=== PATIENT | female | born 1940 | race Caucasian/White ===

== ENCOUNTER 2023-09-11 00:56 | Inpatient (IN) | payer MEDICARE, OTHER, SELFPAY ==
[2023-09-10] VITALS (14 sets, daily range): BP systolic 113–157; BP diastolic 54–117; BMI 24.3
[2023-09-10] MEDS: NSS 1000 IV (17:04)
[2023-09-10 17:11] LABS: % Basophils 0.3 % (0-2); % Eosinophils 0.1 % (0-6); % Immature Granulocytes 0.1 % (0-0.5); % Lymphocytes 21.1 % (20.5-51.1); % Neutrophils 69.4 % (42.2-75.2); Absolute Lymphocytes 1.4 10^3/uL (1.2-3.4); Absolute Monocytes 0.6 10^3/uL (0.1-0.6); Absolute Neutrophils 4.7 10^3/uL (1.4-6.5); Hematocrit 49.3 % (37.0-47.0); Hemoglobin 16.7 g/dL (12.0-16.0); Mean Corp Hgb Conc. 33.9 g/dL (33.0-37.0); Mean Corpuscular Hgb 32.1 pg (27.0-31.0); Mean Corpuscular Volume 94.6 fL (81.0-99.0); Mean Platelet Volume 10.5 fL (7.4-10.4); Nucleated Red Blood Cells % 0 %; Platelet Count 223 10^3/uL (130-400); Red Blood Cell Count 5.21 10^6/uL (4.20-5.40); Red Cell Dist. Width 13.2 % (11.5-14.5); White Blood Cell Count 6.8 10^3/uL (4.8-10.8)
[2023-09-10 17:24] LABS: ALT (SGPT) 20 U/L (0-35); AST (SGOT) 32 U/L (14-36); Albumin 4.7 g/dl (3.5-5.0); Alkaline Phosphatase 118 U/L (38-126); Blood Urea Nitrogen 20 mg/dl (7-17); Calcium 9.8 mg/dl (8.4-10.2); Carbon Dioxide 18 mmol/L (22-30); Chloride 106 mmol/L (98-107); Estimated Creatinine Clearance 30 ml/min; Glucose 126 mg/dl (70-99); Potassium 4.1 mmol/L (3.5-5.1); Sodium 139 mmol/L (135-145); Total Bilirubin 0.9 mg/dl (0.2-1.3); Total Protein 7.6 g/dl (6.3-8.2); eGFR 49.55
[2023-09-10] MEDS: CARDIZEM 15 MG IV (17:34)
[2023-09-10 17:35] LABS: Troponin I 0.071 ng/ml
[2023-09-10] MEDS: TOPROL XL 12.5 MG PO (19:30)
[2023-09-10] MEDS: ELIQUIS 5 MG PO (19:31)
--- NOTE | 2023-09-10 19:47 | ED.GENMED ---
History of Present Illness
General
Chief Complaint: Heart Rate Problem
Source: patient and family
Exam Limitations: none
Time Seen by Provider: 09/10/23 17:08
Nursing documentation reviewed up to this point in time: agreed with
History of Present Illness
History of Present Illness:
82-year-old female with a past medical history of hypertension, history of Crohn's disease status post distant bowel resection who presents to the emergency room for evaluation of tachycardia. Patient reports that on Thursday and Thursday
this week she was having diarrheal illness�she says she was having some mild crampy abdominal pain associated with loose stools. She did have 1 episode of vomiting on Thursday. The symptoms have resolved and she feels better from a GI perspective
however today was having some palpitations with some mild chest discomfort and noted elevated heart rate. She says she called her primary doctor and was referred to the emergency room for assessment. She has not had any chest pain or shortness of
breath since arrival in the ER. Denies any fevers or chills. She denies any other complaints today. EKG on arrival was concerning for atrial fibrillation�she denies any known history of A-fib.
Review of Systems
Review of Systems
All Other Systems: ROS reviewed and negative except as documented in HPI and ROS
Constitutional: Denies fever or chills
Respiratory: Denies cough or trouble breathing
Cardiac: Reports palpitations; Denies chest pain, diaphoresis or syncope
ABD/GI: Reports abdominal pain (Resolved), vomiting (Resolved) and diarrhea (Resolved); Denies nausea
: Denies flank pain
Musculoskeletal: Denies neck pain or back pain
Neurological: Denies dizzy or headache
Phy Exam
Physical Exam
Physical Exam:
General: Awake, alert, oriented x3; no acute distress
Head: Normocephalic, atraumatic
Eyes: Conjunctiva normal, sclera anicteric
Throat: Airway intact, mucous membranes somewhat tacky and dry
Neck: Trachea midline, supple without meningismus
Lungs: Clear to auscultation bilaterally, no wheezing, rales, rhonchi
Heart: Tachycardia with irregularly irregular rhythm, no murmurs, gallops, or rubs appreciated
Abd: Soft, non distended, nontender to deep palpation
Neuro: No gross deficits
Skin: no rash
Extremities: No edema in extremities, equal pulses in all extremities
Scores
Heart Failure Risk
Heart Failure Risk Score: Not Applicable
Heart Score for Chest Pain Patients
STEMI patient?: Not applicable
Withdrawal Assessment of Alcohol
Withdrawal Assessment Completed?: Not applicable
Course
Orders/Labs/Results
Orders:
Orders
09/10/23 16:45
Electrocardiogram (*1) Urgent
Reason for Study: Bradycardia / Tachycardia
EKG- Treatment ONCE
09/10/23 17:03
Complete Blood Count/With Diff Urgent
Comprehensive Metabolic Panel Urgent
Troponin I Urgent
09/10/23 17:04
0.9% Sodium Chloride 1000 ml [Nss] 1,000 ml IV BOLUS
09/10/23 17:09
Electrocardiogram (*1) Urgent
Reason for Study: Tachycardia
EKG- Treatment ONCE
09/10/23 17:28
Diltiazem HCl [Cardizem] 15 mg IV NOW STA
09/10/23 17:32
TSH Reflex To Free T4 Urgent
09/10/23 17:53
EKG [Electrocardiogram (*1)] Urgent
Reason for Study: CAD
EKG- Treatment ONCE
09/10/23 19:21
Apixaban [Eliquis] 5 mg PO ONCE ONE
Metoprolol Xl [Toprol Xl] 12.5 mg PO NOW STA
09/10/23 19:34
Troponin I Urgent
09/10/23 22:27
Troponin I Urgent
Abnormal Lab Results
09/10/23 09/10/23 09/10/23
17:03 19:34 22:27
Hgb 16.7 H g/dL
(12.0-16.0)
Hct 49.3 H %
(37.0-47.0)
MCH 32.1 H pg
(27.0-31.0)
MPV 10.5 H fL
(7.4-10.4)
Carbon Dioxide 18 L mmol/L
(22-30)
BUN 20 H mg/dl
(7-17)
Creatinine 1.1 H mg/dL
(0.6-1.0)
Glucose 126 H mg/dl
(70-99)
Troponin I 0.071 H* ng/ml 0.100 H* D ng/ml 0.128 H* D ng/ml
09/10/23 17:03
09/10/23 17:03
Vital Signs
Initial and Last Documented VS:
Initial Vital Signs
Temp Pulse Resp BP Pulse Ox
36.7 C 142 16 154/96 98
09/10/23 16:41 09/10/23 16:41 09/10/23 16:41 09/10/23 16:41 09/10/23 16:41
Last Documented Vital Signs
Temp Pulse Resp BP Pulse Ox
36.7 C 103 23 150/117 95
09/10/23 16:41 09/10/23 22:45 09/10/23 22:45 09/10/23 22:33 09/10/23 22:15
MDM/Problems Addressed
Differential Diagnosis Includes:
Atrial fibrillation, atrial flutter, sinus tachycardia, SVT/AVNRT
MDM/Problems Addressed:
82-year-old female presents to the emergency room for evaluation of tachycardia and palpitations that started today in the setting of recent GI illness. GI symptoms have resolved and today started with palpitations and tachycardia. She is
hypertensive and tachycardic to the 140s. Physical exam as documented. EKG on arrival initially read as sinus tachycardia but concerning for atrial flutter on closer inspection--repeat EKG showed findings concerning for A-fib. Plan to place an IV
check labs including CBC and a CMP. Will check thyroid studies. Will provide some IV fluids and IV diltiazem. Will monitor closely reassess after the above.
Labs reviewed: CBC appears hemoconcentrated, CMP shows mild CAIO with a creatinine of 1.1. Suspect likely hypovolemia in the setting of recent GI illness. IV fluids in progress. She had a troponin sent in triage�this was marginally elevated
suspect likely related to demand in the setting of tachycardia as well as mild CAIO. She is chest pain-free do not suspect ACS. Will trend troponin to ensure that it does not trend significantly upward. Her thyroid studies are normal. On clinical
reassessment after IV diltiazem her heart rate has significantly improved she now has heart rate in the 80s but remains in A-fib. Will give some p.o. metoprolol and start patient on Eliquis. Will continue to monitor heart rate and provide IV
fluids. If she remains asymptomatic and rate controlled can likely be reasonably discharged with close outpatient cardiology follow-up�patient prefers [facility] as her is to see Dr. Sullivan.
Repeat troponin actually uptrending from 0.073-->0.1. Suspect likely demand but with uptrending troponin I did discuss with cardiology�they agree likely rate related but recommend trending to peak.
Third troponin continues to trend upward 0.1-->0.12. Will admit to hospitalist service for trending of troponins to peak and cardiology consultation. Case discussed with hospitalist.
Acute Exacerbation and/or Progression of Chronic Illness:
Acutely hypertensive-treated with p.o. metoprolol for heart rate which should help blood pressure as well
Acute Exacerbation and/or Progression of Chronic Illness: HTN
*Pulse Oximetry
Patient hypoxic: no
*EKG
Interpreted by ED Provider?: Yes
Heart Rate: 141
Rate: tachycardiac
Rhythm: atrial flutter
Parker: normal axis
Interval: normal interval
QRS Pattern: normal QRS
Ischemia: non-specific ST changes
*Critical Care Note
Total Time (30-74mins, 75-104mins- exclusive of procedures): Not Applicable
Data Reviewed
Review of Other/Old Records Reveals: Labs and Records
Source: patient, records and family
ED Attending Note
-
Portions of this chart may have been created with voice recognition software.� Occasional wrong word or��sound alike� substitutions may have occurred due to the inherent limitations of voice recognition software.
Discharge Plan
Departure
Referrals:
Galina Daigle DO [Family Provider] -
Interventions
Interventions:
*Risk Screen - Suicide Last Done: 09/10/23 17:00
*General Assessment Last Done: 09/10/23 17:00
*Neglect/Abuse Screening Last Done: 09/10/23 17:00
ED- Fall Risk Assessment Last Done: 09/10/23 17:00
*ED COVID-19 Vaccine History Last Done: 09/10/23 17:00
ED- Cardiac Assessment Last Done: 09/10/23 17:00
ED- Pulmonary Assessment Last Done: 09/10/23 17:00
Discharge Date and Time
Print Language: ICELANDIC
[2023-09-10 23:09] LABS: Troponin I 0.128 ng/ml
[2023-09-11] VITALS (7 sets, daily range): BP systolic 121–149; BP diastolic 62–95; BMI 26.0
--- NOTE | 2023-09-11 00:40 | HPS.HSE ---
Family Physician
-
Family Physician: Galina Daigle DO
Chief Complaint
-
High HR
History of Present Illness
Patient is an 82y F with PMH significant for Crohn's disease s/p remote bowel resection who presents to ED for evaluation of elevated heart rates. Patient states that she had been ill in the early part of the week with GI symptoms of N/V/D.
This occurred from Thursday - Thursday and she attributed these symptoms to food poisoning. Her daughter is also ill with similar symptoms.
Patient felt poorly and began to check her blood pressure at home. Yesterday her heart rate on the BP monitor was 140. Her BP was somewhat on the low side and - as a result - patient held her usual amlodipine.
Patient states that her GI symptoms have all resolved.
She denies any symptoms of chest pain, dyspnea, palpitations, etc. If not for the reading on the BP monitor, she would not have known her HR was elevated.
Patient spoke with her PCP and was referred to the ED for further evaluation.
Patient was initially noted to have HR of about 140 - 150 in the ED and appeared to be in A-Flutter with 2:1 block.
She was treated with IV Cardizem x 1 dose and entered A-Fib with more controlled rate.
At present, she is resting comfortably and has no complaints. She has no prior history of A-Fib.
Medical History
Past Medical History
Past Medical History: Reports Other
Additional Past Medical History:
Crohn's Disease
Hypertension
Past Surgical History: Reports Other
Additional Past Surgical History:
Partial Small Bowel Resection
T&A
Social History
Tobacco: Non-smoker
Alcohol: None
Drug: None
Personal:
Family History
Family History: Not pertinent
Allergies / Home Medications
Allergies reflects when Allergies were last updated in [id number].
Home Medications with original date entered in [id number]
Allergy/Medication List:
Allergies
Allergy/AdvReac Type Severity Reaction Status Date / Time
No Known Allergies Allergy Verified 09/10/23 16:45
Home Medications
amlodipine 2.5 mg tablet 2.5 mg PO HS 09/10/23
Review of Systems
-
History Source: Patient
A 12 point ROS was completed and negative except as noted: Yes
Constitutional: Denies Fever, Fatigue or Chills
EENT: Denies Sore Throat
Respiratory: Denies Cough or Trouble Breathing
Cardiac: Denies Chest Pain or Palpitations
Abdomen/GI: Denies Abdominal Pain, Nausea, Vomiting or Diarrhea
: Denies Dysuria or Frequency
Musculoskeletal: Denies Joint Pain or Edema
Neurological: Reports Headache; Denies Dizzy, Weakness or Numbness
Psych: Denies Depression or Anxiety
Physical Exam
Vital Signs
Vital Signs
Temp Pulse Resp BP Pulse Ox
98.0 F 113 23 121/71 96
09/10/23 16:41 09/11/23 00:00 09/11/23 00:00 09/11/23 00:00 09/10/23 23:30
Physical Exam
General: Other (82y F in no acute distress.)
HEENT: Moist mucous membranes and PERRLA
Respiratory: Clear; No Wheezes, Rales or Rhonchi
Cardiac: S1/S2 and Irregular Rhythm; No Murmur
GI: Soft, Non Tender, Non Distended and Normal Bowel Sounds
Musculoskeletal: No Clubbing, No Cyanosis and No Edema
Neuro: AO x 3
Laboratory Results
-
09/10/23 17:03
09/10/23 17:03
Laboratory Results
Total Bilirubin 0.9 mg/dl (0.2-1.3) 09/10/23 17:03
AST 32 U/L (14-36) 09/10/23 17:03
ALT 20 U/L (0-35) 09/10/23 17:03
Alkaline Phosphatase 118 U/L (38-126) 09/10/23 17:03
Troponin I 0.128 ng/ml H* D 09/10/23 22:27
Impression/Plan
-
A/P: Patient is an 82y F with PMH significant for hypertension and remote Crohn's disease who presents to ED for evaluation of elevated HR on BP monitor.
Atrial Fibrillation / Flutter - New
- Admit to monitored bed for further evaluation and treatment.
- Continue Toprol XL BID for now and adjust dose / frequency as needed for rate control.
- Continue Eliquis for stroke risk reduction.
- Cardiology evaluation to discuss treatment options.
- Check Echo.
Non-Ischemic Myocardial Injury
- Troponin in the ED 0.071 to 0.1 to 0.128.
- Patient has no chest pain at present and tells me that she never had any chest pain, pressure, palpitations, etc.
- EKG with non-specific T wave changes in setting of rapid rates.
- Continue to follow troponin to peak.
- ASA daily in addition to beta-melodie / Eliquis as noted above.
- Cardiology evaluation / Echo.
Benign Hypertension
- Hold amlodipine for now given newly added Toprol.
- Adjust med regimen as needed for rate and BP control.
DVT Prophylaxis: On Eliquis.
Code Status: Full
[2023-09-11 03:34] LABS: Troponin I 0.118 ng/ml
--- NOTE | 2023-09-11 08:49 | W.PN.HOSP.TC ---
Addendum entered and electronically signed by Sherif Rondon MD 09/11/23 16:02:
Case discussed with Dr. Melara. Echo with normal EF and he has cleared the pt for discharge.
Total time spent on d/c = 33 min. This included today's physical exam, progress note, review of laboratory and diagnostic data, preparation of discharge documents and prescriptions, and discussions about the pt's hospital course and discharge plan
with the patient and other medical receptionist biller involved in the patient's care.
Original Note:
Today's Communication/Plan
-
likely d/c later today
Assessment / Plan
Assessment / Plan
82y F with PMH significant for hypertension and remote Crohn's disease who presents to ED for evaluation of elevated HR on BP monitor.
Gen: NAD, AAOx3.
Eyes: EOMI, PERRLA, no scleral icterus.
Neck: supple.
CV: irreg/irreg, +S1/S2, no m/r/g.
Resp: CTAB, no rales, wheezes, or rhonchi.
Abd: +BS, soft, NT, ND
Skin: No rashes.
Neuro: CN 2-12 intact, non-focal.
Psych: Normal mood and affect.
New Atrial Fibrillation/Flutter:
-cont Toprol XL/Eliquis
-check echo
-c/s cards
Acute Non-Ischemic Myocardial Injury:
-minimally elevated trops
-EKG on admission with non-specific T wave changes in setting of rapid rates
-check echo
-cards c/s
-cont ASA/BB
Essential Hypertension: cont BB
FULL/Eliquis
Anticipated Discharge: Today
Subjective/Interval History
-
Date of Service: September 11, 2023
Denies chest pain or shortness of breath.
Objective Data
-
Labs:
Laboratory Results
09/11/23
06:00
WBC Pending
Hgb Pending
Hct Pending
Plt Count Pending
Sodium Pending
Potassium Pending
Chloride Pending
Carbon Dioxide Pending
BUN Pending
Creatinine Pending
Glucose Pending
Calcium Pending
Vital Signs:
Vital Signs
Temp Pulse Resp BP Pulse Ox
97.9 F 63 17 130/66 97
09/11/23 07:18 09/11/23 07:18 09/11/23 07:18 09/11/23 07:18 09/11/23 07:18
I&O
09/10/23 09/11/23 09/12/23
06:59 06:59 06:59
Intake Total 480 / 480
Balance 480 / 480
[2023-09-11] MEDS: ELIQUIS 5 MG PO (08:58)
[2023-09-11] MEDS: LOW STRENGTH ASPIRIN 81 MG PO (08:58)
[2023-09-11] MEDS: TOPROL XL 12.5 MG PO (08:58)
[2023-09-11 10:21] LABS: Hematocrit 44.8 % (37.0-47.0); Hemoglobin 15.2 g/dL (12.0-16.0); Mean Corp Hgb Conc. 33.9 g/dL (33.0-37.0); Mean Corpuscular Hgb 32.3 pg (27.0-31.0); Mean Corpuscular Volume 95.3 fL (81.0-99.0); Mean Platelet Volume 10.5 fL (7.4-10.4); Platelet Count 206 10^3/uL (130-400); Red Cell Dist. Width 13.3 % (11.5-14.5); White Blood Cell Count 6.2 10^3/uL (4.8-10.8)
[2023-09-11 10:43] LABS: Blood Urea Nitrogen 19 mg/dl (7-17); Calcium 9.2 mg/dl (8.4-10.2); Carbon Dioxide 22 mmol/L (22-30); Chloride 108 mmol/L (98-107); Estimated Creatinine Clearance 33 ml/min; Glucose 104 mg/dl (70-99); HDL Cholesterol 49 mg/dl; LDL Cholesterol, Calculated 162 mg/dl; Sodium 138 mmol/L (135-145); Total Cholesterol 240 mg/dl (50-199); Triglyceride 146 mg/dl (10-149); Very Low Density Lipoprotein 29 mg/dl (0-30); eGFR 55.55
[2023-09-11 11:05] LABS: Troponin I 0.123 ng/ml
--- NOTE | 2023-09-11 11:43 | CON.CAR ---
Addendum entered and electronically signed by Abdoulaye Melara MD 09/11/23 16:35:
Patient seen and examined in collaboration with [employer]; agree with below.
-82-year-old female with hypertension admitted with new onset paroxysmal atrial fibrillation with RVR.
-The patient is now back in sinus rhythm.
-Echocardiogram today revealed an LVEF of 65-70% with no regional wall motion abnormalities; severe biatrial enlargement was noted in addition to stage II diastolic dysfunction.
-Patient can be discharged to home today on Toprol-XL 25 mg daily and Eliquis 5 mg twice daily.
-Outpatient follow-up with Cardiology.
Original Note:
Consultation
Consultation Request
Date/Time Consultation Requested: 09/10/2023 23:00
Date/Time Consultation Performed: 09/10/2020 11:30
Requesting Provider: Dr. Jeffery
Performing Provider: JANELLE Santizo for Dr. Melara
Reason for Consultation: Atrial fibrillation with rapid ventricular response
Medical History
-
Chief Complaint: Elevated heart rate
History of Present Illness:
The patient is an 82-year-old female with Crohn's disease and hypertension who presented to the emergency department with a chief complaint of elevated heart rate. She was monitoring her blood pressure at home during what sounds like a brief bout
of food poisoning and found her heart rate to be 140 bpm. She denies having palpitations at that time. She presented to the emergency department. She was found to be in atrial flutter and was given intravenous diltiazem and degenerated down to
atrial fibrillation with a controlled rate. She was started on metoprolol succinate 12.5 mg twice daily. She is currently in sinus rhythm with PACs.
Past Medical History
Past Medical History: HTN and Other (Crohn's disease)
Past Surgical History: Bowel Resection
Social History
Tobacco: Non-Smoker
Alcohol: None
Drug: None
Personal:
Living: With Family
Employment: Retired
Family History
Family History: Reviewed & Not Pertinent
Allergies / Home Medications
Allergy/AdvReac Type Severity Reaction Status Date / Time
No Known Allergies Allergy Verified 09/10/23 16:45
�Medication �Instructions �Recorded �Confirmed �Type
amlodipine 2.5 mg tablet 2.5 mg PO HS 09/10/23 09/10/23 History
Review of Systems
-
History Source: Patient
All other systems: Negative unless noted
Constitutional: No Symptoms
EENT: No Symptoms
Respiratory: No Symptoms
Cardiac: No Symptoms
Abdomen/GI: No Symptoms
: No Symptoms
Musculoskeletal: No Symptoms
Skin: No Symptoms
Neurological: No Symptoms
Endocrine: No Symptoms
Hematologic/Lymphatic: No Symptoms
Physical Exam
Vital Signs
Temp Pulse Resp BP Pulse Ox
97.7 F 59 17 128/62 99
09/11/23 11:42 09/11/23 11:42 09/11/23 11:42 09/11/23 11:42 09/11/23 11:42
Lab Results
09/11/23 10:11
09/11/23 10:11
Troponin I 0.123 ng/ml H* 09/11/23 10:11
Physical Exam
General: Well Developed, Well Nourished, No Apparent Distress and Comfortable
HEENT: Normocephalic, Anicteric and Moist Mucous Membranes
Respiratory: Clear and Non Labored Respirations
Cardiac: S1/S2 and Irregular Rhythm
Breast: Deferred by me
GI: Soft, Non Tender, Non Distended and Normal Bowel Sounds
Rectal: Deferred by Provider
Genito-urinary: No Costovertebral Tender
Musculoskeletal: No Clubbing, No Cyanosis and No Edema
Skin: Warm and Dry
Neuro: AO x 3
Hematologic/Lymphatic: No Lymphadenopathy
Psych: Calm
Impression / Plan
-
Paroxysmal atrial fibrillation
-In sinus with PACs, on metoprolol succinate change to daily dosing so she does not need to split tablets
-Oral Anticoagulation: Apixaban 5 mg twice daily
-[id number]: score at least (HTN, age 75 or more, female gender)
-Echocardiogram
Abnormal troponin, nonischemic myocardial injury in the setting of tachyarrhythmia
-She is chest pain-free
-Troponin peak 0.128
Dyslipidemia, LDL 162, consider initiation of atorvastatin
Hypertension, discontinue amlodipine and continue metoprolol succinate
Crohn's disease, chronic
Data Reviewed
-
EKG: Report Reviewed by me
Labs: Labs Reviewed by me
Old Records: Reviewed (Outpatient PCP notes)
[2023-09-11 13:56] LABS: Glycohemoglobin (HgbA1c) 5.2 % (4.0-5.6)
--- NOTE | 2023-09-11 15:26 | CM ---
met with patient at bedside.patient lives with her daughter/bhupendra landa in house with 3 ciera,her bed and bath is on the first floor,she amb i and is I with hre adls.patient has never had a vn or been to ip rehab.her pcp is dr jessica blas and she uses
[facility] in [place].
past medical hxdls,htn,crohns disease sp surgery
patient is adm with afib and is on eliquis.she is being monitored by cardiology.plan is dc home with daughter.there is no home care needs anticipated.
--- NOTE | 2023-09-11 16:04 | W.DCSUMMARY ---
Discharge Summary
Discharge Data
Date of Admission: 09/11/23
Date of Discharge: 09/11/23
-
Pending Results: No
Hospital Course
Primary diagnoses:
New paroxysmal atrial fibrillation
Secondary diagnoses:
Acute nonischemic myocardial injury
Essential hypertension
Crohn's disease s/p remote bowel
Consultants:
Cardiology
Imaging:
Echo:
-Left ventricular ejection fraction is 65-70%. Normal regional wall motion.
Stage II diastolic dysfunction suggestive of abnormal relaxation and increased
filling pressures.
-Normal right ventricular size and function.
-Severely dilated left atrium. Severely dilated right atrium.
-Aortic sclerosis without stenosis. Mild aortic regurgitation.
-Mild tricuspid regurgitation. Estimated pulmonary artery pressure of 35-40
mmHg.
No prior study available for comparison.
Hospital course: 82-year-old female who presented yesterday with a chief complaint of 'high heart rate' as outlined in the H&P done on admission. She was initially found to be in atrial flutter with 2 1 block at a rate of 140-150. She was given IV
Cardizem and then converted to atrial fibrillation with a better controlled rate. She was placed on Toprol-XL and Eliquis. She had an echocardiogram as above. She was discharged in medically stable condition.
Discharge Plan
-
Patient Disposition: Home (Routine Discharge)
Discharge Diagnosis/Procedures: New paroxysmal atrial fibrillation
Condition: Good
Diet: Other diet
Additional Diets: Heart healthy
Activity: As tolerated
Driving Restrictions: As prior to admission
Blood Work: BMP and CBC in 1 week, prescription from PCP
Referrals:
Galina Daigle DO [Family Provider] - in less than 1 week
Prescriptions:
New
metoprolol succinate 25 mg Tablet Extended Release 24 Hr
25 mg PO DAILY Qty: 30 0RF
Eliquis 5 mg Tablet
5 mg PO BID Qty: 60 0RF
Discontinued
amlodipine 2.5 mg tablet
2.5 mg PO HS
Discharge Orders:
Discharge Patient (As Directed); Ordered 09/11/23
Ordered By: Sherif Rondon
Discharge Date and Time
Print Language: PORTUGUESE
== END 2023-09-11 17:10 | disposition home or self-care (01) | DRG 309 ==
LOC: 3 WEST ACU 00:56
PROVIDERS: Emergency Medicine; ADMITTING PHYSICIAN Hospitalist; ATTENDING PHYSICIAN Internal Medicine; EMERGENCY PHYSICIAN Emergency Medicine; FAMILY PHYSICIAN Internal Medicine; OTHER PHYSICIAN Internal Medicine
DX: I48.0 Paroxysmal atrial fibrillation (principal); I5A Non-ischemic myocardial injury (non-traumatic); K50.90 Crohn's disease, unspecified, without complications; Z79.01 Long term (current) use of anticoagulants; I10 Essential (primary) hypertension
CPT/HCPCS: 80048; 80053; 80061; 83036; 84443; 84484; 85025; 85027; 93005; 93306; 96361; 96374; 99285

== ENCOUNTER 2023-09-14 15:36 | Emergency (ER) | payer MEDICARE, OTHER, SELFPAY ==
[2023-09-14] VITALS (10 sets, daily range): BP systolic 114–144; BP diastolic 65–99
--- NOTE | 2023-09-14 17:34 | ED.GENMED ---
History of Present Illness
<Nerissa Perez MD, Resident - Last Filed: 09/14/23 22:33>
General
Chief Complaint: Fever
Time Seen by Provider: 09/14/23 16:53
History of Present Illness
History of Present Illness:
83-year-old female with history atrial fibrillation on Eliquis and metoprolol, hypertension, Crohn's disease s/p partial colon resection, hemorrhoids presented to the ED with complaints of fever, ' side effects to metoprolol'. The patient
experienced an episode of atrial fibrillation for which she was seen in and was started on Eliquis and Metoprolol. Patient states that after being discharge from the hospital she was taking the medication and on Thursday she felt nauseous,
feeling weak in her legs, some bloating. She suspected that this could be side effect to medication-metoprolol. Last dose of Eliquis and metoprolol was on Thursday evening. This morning she felt 'heart racing' which is what prompted her to come
to the ED. Patient is very concerned about her ongoing diarrhea for the past 2-week. A week ago she and her daughter had food poisoning which initiated diarrhea for the patient. She admits to blood in her stool but is unsure if it is because of
her history hemorrhoids. She denies any pain with defecation, urgency or frequency in urination, abdominal pain, chest pain, shortness of breath. Additionally patients mentions that she does not have prescription insurance .
Review of Systems
<Nerissa Perez MD, Resident - Last Filed: 09/14/23 22:33>
Review of Systems
Cardiac: Reports palpitations
ABD/GI: Reports nausea and bloody stools
Phy Exam
<Nerissa Perez MD, Resident - Last Filed: 09/14/23 22:33>
General Physical Exam
General Presentation: no apparent distress
General Habitus: elderly
General Mental: alert
Cardiovascular Exam
Cardiovascular Exam: no murmur and irregularly irregular
Pulmonary Exam
Pulmonary Exam: lungs clear, no respiratory distress, no rales, no crackles and no rhonchi
Gastrointestinal Exam
Gastrointestinal Exam: normal bowel sounds, non tender, soft and non distended
Neurological Exam
Neurological Exam: alert and oriented x3
Psychiatric Exam
Psychiatric Exam: normal mood/affect
Course
<Nerissa Perez MD, Resident - Last Filed: 09/14/23 22:33>
Orders/Labs/Results
Orders:
Orders
09/14/23 15:40
Electrocardiogram (*1) Urgent
Reason for Study: Bradycardia / Tachycardia
EKG- Treatment ONCE
09/14/23 17:39
STOOL [C difficile Antigen & Toxins] Urgent
GARRETT Source: Feces/Stool
Specimen Description:
0.9% Sodium Chloride 500 ml [Nss] 500 ml IV BOLUS
Metoprolol [Lopressor] 5 mg IV NOW STA
09/14/23 17:44
Ova & Parasites Giardia/Crypto AG [Giardia/Cryptosporidium Ag] Urgent
GARRETT Source: Feces/Stool
Specimen Description:
09/14/23 17:49
CT Abd/pel Without Iv Or Oral Urgent
Comment:
Reason For Exam: nausea, hematochezia
09/14/23 18:08
Add On- LAB Urgent
Tests Added?: troponin I
09/14/23 18:21
Diltiazem HCl [Cardizem] 10 mg IV NOW STA
09/14/23 19:00
CBC/With Diff [Complete Blood Count/With Diff] Urgent
CMP [Comprehensive Metabolic Panel] Urgent
Troponin I Urgent
09/14/23 21:53
Amoxicillin 875 mg/Clav 125 mg [Augmentin 875 mg/125 mg] 1 tablet PO NOW STA
Diltiazem Extended Release [Cardizem Cd] 120 mg PO NOW STA
Abnormal Lab Results
09/14/23
19:00
MCH 31.6 H pg
(27.0-31.0)
MPV 11.0 H fL
(7.4-10.4)
Absolute Monos (auto) 0.7 H 10^3/uL
(0.1-0.6)
Monocytes % 10.4 H %
(1.7-9.3)
Chloride 109 H mmol/L
(98-107)
Carbon Dioxide 18 L mmol/L
(22-30)
BUN 18 H mg/dl
(7-17)
Troponin I 0.079 H* ng/ml
09/14/23 19:00
09/14/23 19:00
Vital Signs
Initial and Last Documented VS:
Initial Vital Signs
Temp Pulse Resp BP Pulse Ox
98.0 F 110 16 144/86 98
09/14/23 15:37 09/14/23 15:37 09/14/23 15:37 09/14/23 15:37 09/14/23 15:37
Last Documented Vital Signs
Temp Pulse Resp BP Pulse Ox
98.0 F 83 24 116/66 97
09/14/23 15:37 09/14/23 20:15 09/14/23 20:15 09/14/23 20:00 09/14/23 20:15
<Meme Fallon DO - Last Filed: 09/14/23 22:05>
Orders/Labs/Results
Orders:
Orders
09/14/23 15:40
Electrocardiogram (*1) Urgent
Reason for Study: Bradycardia / Tachycardia
EKG- Treatment ONCE
09/14/23 17:39
STOOL [C difficile Antigen & Toxins] Urgent
GARRETT Source: Feces/Stool
Specimen Description:
0.9% Sodium Chloride 500 ml [Nss] 500 ml IV BOLUS
Metoprolol [Lopressor] 5 mg IV NOW STA
09/14/23 17:44
Ova & Parasites Giardia/Crypto AG [Giardia/Cryptosporidium Ag] Urgent
GARRETT Source: Feces/Stool
Specimen Description:
09/14/23 17:49
CT Abd/pel Without Iv Or Oral Urgent
Comment:
Reason For Exam: nausea, hematochezia
09/14/23 18:08
Add On- LAB Urgent
Tests Added?: troponin I
09/14/23 18:21
Diltiazem HCl [Cardizem] 10 mg IV NOW STA
09/14/23 19:00
CBC/With Diff [Complete Blood Count/With Diff] Urgent
CMP [Comprehensive Metabolic Panel] Urgent
Troponin I Urgent
09/14/23 21:53
Amoxicillin 875 mg/Clav 125 mg [Augmentin 875 mg/125 mg] 1 tablet PO NOW STA
Diltiazem Extended Release [Cardizem Cd] 120 mg PO NOW STA
Abnormal Lab Results
09/14/23
19:00
MCH 31.6 H pg
(27.0-31.0)
MPV 11.0 H fL
(7.4-10.4)
Absolute Monos (auto) 0.7 H 10^3/uL
(0.1-0.6)
Monocytes % 10.4 H %
(1.7-9.3)
Chloride 109 H mmol/L
(98-107)
Carbon Dioxide 18 L mmol/L
(22-30)
BUN 18 H mg/dl
(7-17)
Troponin I 0.079 H* ng/ml
09/14/23 19:00
09/14/23 19:00
Vital Signs
Initial and Last Documented VS:
Initial Vital Signs
Temp Pulse Resp BP Pulse Ox
98.0 F 110 16 144/86 98
09/14/23 15:37 09/14/23 15:37 09/14/23 15:37 09/14/23 15:37 09/14/23 15:37
Last Documented Vital Signs
Temp Pulse Resp BP Pulse Ox
98.0 F 83 24 116/66 97
09/14/23 15:37 09/14/23 20:15 09/14/23 20:15 09/14/23 20:00 09/14/23 20:15
<Nerissa Perez MD, Resident - Last Filed: 09/14/23 22:33>
*Critical Care Note
Total Time (30-74mins, 75-104mins- exclusive of procedures): Not Applicable
<Nerissa Perez MD, Resident - Last Filed: 09/14/23 22:33>
Update Note
Update Note:
82-year-old female presents to the ED with fever, nausea, feeling weak in her legs.
EKG shows atrial flutter potentially due to missed dose of Metoprolol. Last dose of Eliquis and metoprolol was on 09/11.
The patient experienced an episode of atrial fibrillation for which she was seen in and was started on Eliquis and Metoprolol. She missed her medication for 1 day and reverted to atrial fibrillation.
- IV IV fluids bolus, IV Lopressor 5 mg given to the patient. It is very unlikely that these symptoms are due to side effect of metoprolol.
-Ordered stool studies for C. difficile, ova/parasites to r/o Giardia, Salmonella, Shigella-- patient was unable to give sample
- CT scan of abd/pelvis to r/o bowel obstruction and for reassurance.
IMPRESSION:
Findings suspicious for subtle acute sigmoid diverticulitis. No perforation or abscess.
Nonspecific 12 mm low-attenuation space-occupying lesion in the liver. Possible cyst. Initial step for further evaluation recommended with nonemergent follow-up ultrasound.
Cholelithiasis. Mild biliary sludge. No CT evidence of acute cholecystitis.
Mesenteric panniculitis.
-Plan to discharge the patient with with p.o. Augmentin 875/125 mg twice a day for 10 days
-For atrial fibrillation we are switching from metoprolol to diltiazem 120 mg extended release once a day.
-Advised the patient to be compliant with the medications which includes Eliquis diltiazem until she sees pitch worker
-The patient continues to experience palpitations, chest pain, shortness of breath she should come back to the ED.
ED Attending Note
<Nerissa Perez MD, Resident - Last Filed: 09/14/23 22:33>
-
Portions of this chart may have been created with voice recognition software.� Occasional wrong word or��sound alike� substitutions may have occurred due to the inherent limitations of voice recognition software.
<Meme Fallon DO - Last Filed: 09/14/23 22:05>
ED Attending Note
Patient seen and examined by attending physician: Yes
I performed the substantive portion of visit, reviewed & personally made and approve the management plan that is documented in note by myself or ALEJO.: Yes
ED Attending Note:
Patient seen and evaluated bedside. 82-year-old female with newly diagnosed atrial fibrillation presenting to the emergency department for low-grade fever, diarrhea, weakness. Patient reports she has been having diarrhea for the past several
weeks, loose stools. She is also been having low-grade fevers. She was recently admitted to the hospital on 09/10, which time she was found to have irregular heart rate, atrial fibrillation. She was started on metoprolol and Eliquis. After taking
the metoprolol, started to feel weak and dizzy, so has not taken it for the past 2 days. She also stopped taking Eliquis. She denies associated abdominal pain. Notes some cramping. Denies chest pain or difficulty breathing. Daughter has similar
diarrhea symptoms. Patient went to her doctor prior to arrival, heart rate was uncontrolled and patient had low-grade fever. She was given Tylenol.
On exam, patient is well-appearing, resting comfortably. On cardiac exam, atrial fibrillation with heart rate in the 110-120 range. Benign pulmonary exam. On abdominal exam, no tenderness to the abdomen, soft and nondistended. No clinical signs
of severe dehydration. No swelling or deformities to the extremities. Suspect uncontrolled heart rate from medication noncompliance. Will administer dose of metoprolol in the emergency department. Regarding her diarrhea, continue to suspect
viral quality. Given duration, will send stool studies if patient able to provide stool sample. Given low-grade fevers, will also obtain CT imaging of the abdomen to rule out acute pathology. Patient explained that she has Medicare without a
prescription plan and going forward cannot afford Eliquis. She does not want to take the blood thinner. Educated the importance of taking the Eliquis and following up with her doctor regarding additional solutions, potentially Coumadin. Patient
has not with cardiology on 09/30. She has a month supply of Eliquis.
21:30 -CT consistent with mild sigmoid diverticulitis. Will start antibiotics. Feel patient can be appropriately managed outpatient, no complicating features. Heart rate has improved. Patient with elevated troponin, however appears to be at her
baseline, without present concern for ischemia. Patient does not want to stay on the metoprolol. Will switch to diltiazem and send prescription, however patient will require close follow-up with cardiology. Again explained importance of
compliance with Eliquis and following up with cardiology/PCP for additional options given her insurance. She has a full month supply. Strict return precautions communicated and patient verbalized understanding
Discharge Plan
Departure
Patient Disposition: Home (Routine Discharge)
Date of Disposition: 09/14/23
Time of Disposition: 22:08
Patient with high blood pressure during this ER visit?: No
Discharge Problem:
Atrial fibrillation and flutter, Diverticulitis
Prescriptions:
New
diltiazem HCl 120 mg capsule,extended release 12 hr
120 mg PO ONCE 30 Days Qty: 30 0RF
amoxicillin-pot clavulanate 875-125 mg tablet
1 tab PO BID 10 Days Qty: 20 0RF
No Action
metoprolol succinate 25 mg Tablet Extended Release 24 Hr
25 mg PO DAILY Qty: 30 0RF
Patient Comments:
09/14/23- patient stated this made her sick and does not want to take it
Eliquis 5 mg Tablet
5 mg PO BID Qty: 60 0RF
Patient Comments:
09/14/23- patient placed on hold dur to copay and can not afford it
Referrals:
Galina Daigle DO [Family Provider] - Follow up in 2-3 days
Ramón Wilcox MD [Active] - Follow up in 2-3 days
Activity Restrictions/Additional Instructions:
She is return to the ED with symptoms of irregular heartbeat, palpitations, chest pain, shortness of breath. Please follow-up with outpatient family medicine doctor.
Interventions
Interventions:
*Risk Screen - Suicide Last Done: 09/14/23 20:26
*General Assessment Last Done: 09/14/23 20:26
*Neglect/Abuse Screening Last Done: 09/14/23 20:27
*ED COVID-19 Vaccine History Last Done: 09/14/23 20:26
ED- Neurological Assessment Last Done: 09/14/23 16:50
ED-Skin Assessment Last Done: 09/14/23 16:52
Discharge Date and Time
Print Language: KINYARWANDA
[2023-09-14] MEDS: LOPRESSOR 5 MG IV (17:50)
[2023-09-14] MEDS: NSS 500 IV (18:04)
[2023-09-14] MEDS: CARDIZEM 10 MG IV (19:00)
[2023-09-14 19:07] LABS: % Basophils 0.5 % (0-2); % Eosinophils 0.5 % (0-6); % Immature Granulocytes 0.2 % (0-0.5); % Lymphocytes 31.2 % (20.5-51.1); % Monocytes 10.4 % (1.7-9.3); % Neutrophils 57.2 % (42.2-75.2); Absolute Monocytes 0.7 10^3/uL (0.1-0.6); Absolute Neutrophils 3.6 10^3/uL (1.4-6.5); Hematocrit 39.5 % (37.0-47.0); Hemoglobin 13.7 g/dL (12.0-16.0); Mean Corp Hgb Conc. 34.7 g/dL (33.0-37.0); Mean Corpuscular Hgb 31.6 pg (27.0-31.0); Nucleated Red Blood Cells % 0 %; Platelet Count 207 10^3/uL (130-400); Red Blood Cell Count 4.34 10^6/uL (4.20-5.40); Red Cell Dist. Width 13.1 % (11.5-14.5); White Blood Cell Count 6.4 10^3/uL (4.8-10.8)
[2023-09-14 19:24] LABS: ALT (SGPT) 23 U/L (0-35); AST (SGOT) 31 U/L (14-36); Albumin 3.9 g/dl (3.5-5.0); Alkaline Phosphatase 71 U/L (38-126); Blood Urea Nitrogen 18 mg/dl (7-17); Carbon Dioxide 18 mmol/L (22-30); Chloride 109 mmol/L (98-107); Glucose 84 mg/dl (70-99); Potassium 4.2 mmol/L (3.5-5.1); Sodium 138 mmol/L (135-145); Total Bilirubin 1.2 mg/dl (0.2-1.3); Total Protein 6.5 g/dl (6.3-8.2); eGFR 55.55
[2023-09-14 19:35] LABS: Troponin I 0.079 ng/ml
[2023-09-14] MEDS: CARDIZEM CD 120 MG PO (22:14)
[2023-09-14] MEDS: AUGMENTIN 875 MG/125 MG 1 TABLET PO (22:15)
[2023-09-14] MEDS: TYLENOL 650 MG PO (22:50)
== END 2023-09-14 23:02 | disposition home or self-care (01) ==
LOC: EMR 15:36
PROVIDERS: Student in an Organized Health Care Education/Training Program; EMERGENCY PHYSICIAN Student in an Organized Health Care Education/Training Program; FAMILY PHYSICIAN Internal Medicine
DX: R19.7 Diarrhea, unspecified (principal); K92.1 Melena; R11.0 Nausea; I48.91 Unspecified atrial fibrillation; K57.92 Diverticulitis of intestine, part unspecified, without perforation or abscess without bleeding; I48.92 Unspecified atrial flutter; R06.02 Shortness of breath; R53.1 Weakness; R42 Dizziness and giddiness; R50.9 Fever, unspecified; R07.9 Chest pain, unspecified; R00.2 Palpitations; Z91.148 Patient's other noncompliance with medication regimen for other reason; I10 Essential (primary) hypertension; K80.20 Calculus of gallbladder without cholecystitis without obstruction; K65.4 Sclerosing mesenteritis; K50.90 Crohn's disease, unspecified, without complications; Z79.01 Long term (current) use of anticoagulants; Z79.899 Other long term (current) drug therapy; Z98.0 Intestinal bypass and anastomosis status
CPT/HCPCS: 99284; 96374; 96375; 96361; 74176; 80053; 84484; 85025; 93005

== ENCOUNTER → 2023-10-28 12:40 | Outpatient (REF) | payer MEDICARE, OTHER, SELFPAY ==
[2023-10-28 15:50] LABS: % Basophils 0.7 % (0-2); % Immature Granulocytes 0.2 % (0-0.5); % Lymphocytes 27.3 % (20.5-51.1); % Neutrophils 62.8 % (42.2-75.2); Absolute Eosinophils 0.1 10^3/uL (0-0.7); Absolute Lymphocytes 1.6 10^3/uL (1.2-3.4); Absolute Monocytes 0.5 10^3/uL (0.1-0.6); Absolute Neutrophils 3.8 10^3/uL (1.4-6.5); Mean Corp Hgb Conc. 33.3 g/dL (33.0-37.0); Mean Corpuscular Hgb 32.2 pg (27.0-31.0); Mean Corpuscular Volume 96.6 fL (81.0-99.0); Mean Platelet Volume 12.3 fL (7.4-10.4); Nucleated Red Blood Cells % 0 %; Platelet Count 226 10^3/uL (130-400); Red Blood Cell Count 4.35 10^6/uL (4.20-5.40); Red Cell Dist. Width 14.9 % (11.5-14.5)
[2023-10-28 15:55] LABS: Blood Urea Nitrogen 12 mg/dl (7-17); Calcium 9.6 mg/dl (8.4-10.2); Carbon Dioxide 28 mmol/L (22-30); Chloride 105 mmol/L (98-107); Glucose 104 mg/dl (70-99); Potassium 4.1 mmol/L (3.5-5.1); Sodium 144 mmol/L (135-145); eGFR > 60.00
== END ==
LOC: HWRAD 12:40
PROVIDERS: ATTENDING PHYSICIAN Nurse Practitioner Family; FAMILY PHYSICIAN Internal Medicine
DX: K92.1 Melena (principal)
CPT/HCPCS: 36415; 74177; 80048; 85025; Q9967

== ENCOUNTER → 2023-11-18 06:17 | Day surgery (SDC) | payer MEDICARE, OTHER, SELFPAY | LOC: GI 06:17 | PROVIDERS: ATTENDING PHYSICIAN Internal Medicine Gastroenterology | DX: K57.30 Diverticulosis of large intestine without perforation or abscess without bleeding (principal); K64.2 Third degree hemorrhoids; Z98.0 Intestinal bypass and anastomosis status | CPT/HCPCS: 45380; 88305 ==

== ENCOUNTER 2024-05-29 08:56 | Emergency (ER) | payer MEDICARE, OTHER, SELFPAY ==
[2024-05-29 09:01] LABS: Glucose - Point of Care 122 mg/dl (70-99)
--- NOTE | 2024-05-29 09:06 | CON.NEURO ---
Consultation
Order
Date of Consultation: 05/29/24
Requesting Provider: Homer Carmona DO
Reason for Consult: Stroke alert
Called in: 8:41 am
Neurology Consultation Note.
HPI: This is an 83-year-old woman who presented to [facility] on 05/29/2024 with left hemiparesis. According to the patient he used restroom around 3�4 AM today in the morning with no difficulties before she woke up with left-sided
weakness around Ms. Damico states that she has been off Eliquis since October, due to LGIB.
No reports of headaches, change in vision or abnormal movements.
ER VS: 160/82, 63, afebrile
EKG: NSR, QTc Int : 455 ms
PDMP:NKDA
Labs: Glucose�144, normal sodium, troponin�0.0 37, normal platelets, WBCs.
CT head wo contrast�no acute infarcts.
CTA head/neck�right M1 occlusion.
PMH: PA-fib, HTN, DLP, Crohn's disease, GERD, Vitamin D deficiency
PSH: hemicolectomy(1983)
SH: , retired. nonsmoker
All: NKDA
ROS: Positive for left hemiplegia, right gaze preference, nausea, vomiting
NIH Stroke Scale
1A Level of Consciousness: 0/3
1B LOC Questions: 0/2
1C LOC Commands: 0/2
2 Best Gaze: 1/2
3 Visual: 2/3
4 Facial Palsy: 2/3
5A Motor Arm LEFT: 4/4
5B Motor Arm RIGHT: 0/4
6A Motor Leg LEFT: 4/4
6B Motor Leg RIGHT: 3/4
7 Limb Ataxia: 0/2
8 Sensory: 0/2
9 Best Language: 0/3
10 Dysarthria: 1/2
11 Extinction/Inattention: 0/2
Assessment and Plan:
I. Acute right M1 stroke/occlusion. Not a candidate for IV thrombolysis due to timing of the symptoms onset.
II. PA A-fib off Eliquis
III. History of lower GIB
-Continue Telemetry monitoring
-Aspiration precautions
-Avoid cerebral hypoperfusion
-STAT transfer for mechanical thrombectomy.
I personally reviewed all radiology and labs along with past medical records pertinent to current medical problems. Total time spent in patient care is 60 minutes.
Thank you for allowing us to participate in the care of this patient. We will continue to follow. Please do not hesitate to contact us with any questions or concerns.
Subjective/Objective
Subjective Data
Date of Service: May 29, 2024
Objective Data
Patient Allergies
No Known Allergies Allergy (Verified 09/14/23 15:40)
Medications
-
Home Medications
�Medication �Instructions �Recorded
apixaban 5 mg tablet (Eliquis) 5 mg PO BID #60 tabs 09/11/23
metoprolol succinate 25 mg 25 mg PO DAILY #30 tabs 09/11/23
tablet,extended release 24 hr
amoxicillin 875 mg-potassium 1 tab PO BID 10 days #20 tabs 09/14/23
clavulanate 125 mg tablet
diltiazem HCl 120 mg 120 mg PO ONCE 30 days #30 caps 09/14/23
capsule,extended release 12 hr
Vital Signs and Labs
-
Vital Signs and Labs:
Vital Signs
Temp Pulse Resp BP Pulse Ox
36.4 C 58 16 167/76 95
05/29/24 09:26 05/29/24 10:00 05/29/24 10:04 05/29/24 10:00 05/29/24 10:00
Lab Results
05/29/24 09:03
05/29/24 09:03
PT 15.1 Sec (11.4-14.6) H 05/29/24 09:03
INR 1.16 05/29/24 09:03
Sodium 142 mmol/L (135-145) 05/29/24 09:03
Potassium 4.1 mmol/L (3.5-5.1) 05/29/24 09:03
BUN 21 mg/dl (7-17) H 05/29/24 09:03
Glucose 144 mg/dl (70-99) H 05/29/24 09:03
Calcium 8.4 mg/dl (8.4-10.2) 05/29/24 09:03
Home Medications
-
Home Medications
apixaban 5 mg tablet (Eliquis) 5 mg PO BID #60 tabs 09/11/23
metoprolol succinate 25 mg tablet,extended release 24 hr 25 mg PO DAILY #30 tabs 09/11/23
amoxicillin 875 mg-potassium clavulanate 125 mg tablet 1 tab PO BID 10 days #20 tabs 09/14/23
diltiazem HCl 120 mg capsule,extended release 12 hr 120 mg PO ONCE 30 days #30 caps 09/14/23
--- NOTE | 2024-05-29 09:08 | ED.GENMED ---
History of Present Illness
General
Chief Complaint: CVA/TIA Symptoms
Source: patient and ambulance crew
Time Seen by Provider: 05/29/24 08:59
History of Present Illness
History of Present Illness:
This an 83-year-old female presents with left-sided weakness and right gaze preference. She does have a history of A-fib. Reportedly stopped taking her blood thinners sometime ago. Patient states she woke up around 330 go to bathroom seemed okay.
Woke up again this morning and did not feel right. Reportedly did have a little bit of a headache earlier but that has resolved. Last seen normal was around 3:30 AM. EMS states that her blood sugar was okay. Daughter is on the way
If applicable-neuro sx onset
Onset of symptoms known: Yes
Date of onset of symptoms: 05/29/24
Date last time pt seen normal: 05/29/24
Time last time pt seen normal: 03:30
Past History
Past History
ED Past Medical History: Arrthythmia (Atrial fibrillation) and HTN
Phy Exam
Physical Exam
Physical Exam:
CONSTITUTIONAL Patient alert and oriented to person, place and time. Vital signs reviewed.
HEAD atraumatic, normocephalic.
EYES eyelids normal to inspection, Extraocular muscles intact, Conjunctiva normal, Sclera normal.
NECK normal range of motion, Trachea midline, no jugular venous distention.
RESPIRATORY CHEST No respiratory distress noted, Chest expansion equal, Bilateral breath sounds clear.
CARDIOVASCULAR regular rate and rhythm, Heart sounds normal.
BACK normal inspection, no obvious deformities
UPPER EXTREMITY no cyanosis, no edema.
LOWER EXTREMITY no cyanosis, no edema.
NEURO profound right gaze preference, left facial droop, slightly dysarthric, flaccid left side
SKIN skin warm, dry, and normal in color.
Scores
NIH Stroke Score
Level of Consciousness: 0 - Alert
LOC Questions: 0-Answers both correctly
LOC Commands: 0-Performs both correctly
Best Horizontal Gaze: 2-Total gaze palsy
Visual Rodriguez: 0=Normal, no visual loss
Facial Palsy: 3=Complete paralysis
Motor - Right Arm: 0=No drift 10 seconds
Motor - Left Arm: 4=No movement
Motor - Right Le-No drift 5 seconds
Motor - Left Le-No movement
Limb Ataxia: 0-Absent
Sensation: 1-Mild loss
Best Language: 0-No aphasia
Dysarthria: 1-Mild slurring
Extinction and Inattention: 0-No abnormality
Total Score:: 15
Course
Orders/Labs/Results
Orders:
Orders
05/29/24 08:[address] HEAD STROKE ALERT W/o Cont Urgent
Comment:
Reason For Exam: L sided weakness
CT HEAD/NECK ANG STROKE ALERT Urgent
Comment:
Reason For Exam: L sided weakness
05/29/24 09:00
Electrocardiogram (*1) Stat
Reason for Study: Other
Other Reason for Exam: neuro symptoms
Bedside Glucose- Treatment ONCE
EKG- Treatment ONCE
05/29/24 09:03
Complete Blood Count/With Diff Urgent
Comprehensive Metabolic Panel Urgent
Prothrombin Time Urgent
Troponin I Urgent
05/29/24 09:19
Ondansetron Injectable [Zofran] 4 mg IV NOW STA
05/29/24 09:25
CR Chest Portable - 1 View Urgent
Comment:
Reason For Exam: CVA, vomiting
Reason Study Needs to be Portable: Patient Unstable
05/29/24 10:06
Aspirin 300 mg .ROUTE .STK-MED ONE
Abnormal Lab Results
05/29/24 05/29/24
08:59 09:03
RBC 3.81 L 10^6/uL
(4.20-5.40)
MCV 102.6 H fL
(81.0-99.0)
MCH 34.1 H pg
(27.0-31.0)
RDW 16.2 H %
(11.5-14.5)
MPV 10.7 H fL
(7.4-10.4)
PT 15.1 H Sec
(11.4-14.6)
Chloride 108 H mmol/L
(98-107)
BUN 21 H mg/dl
(7-17)
Creatinine 1.2 H mg/dL
(0.6-1.0)
Glucose 144 H mg/dl
(70-99)
Troponin I 0.037 H* ng/ml
POC Glucose 122 H mg/dl
(70-99)
05/29/24 09:03
05/29/24 09:03
Vital Signs
Initial and Last Documented VS:
Initial Vital Signs
Temp Pulse Resp BP Pulse Ox
97.6 F 63 16 160/82 97
05/29/24 09:26 05/29/24 09:26 05/29/24 09:26 05/29/24 09:26 05/29/24 09:26
Last Documented Vital Signs
Temp Pulse Resp BP Pulse Ox
97.6 F 58 16 167/76 95
05/29/24 09:26 05/29/24 10:00 05/29/24 10:04 05/29/24 10:00 05/29/24 10:00
*Radiology
Radiology exam reviewed: preliminary read by ED provider (No obvious hemorrhage)
*Pulse Oximetry
Patient hypoxic: no
*EKG
Interpreted by ED Provider?: Yes
Rate: normal
Rhythm: sinus
[place]: normal axis
Ischemia: non-specific ST changes
*Drapery Supervisor Interpretation
Rate: normal
Interpretation: normal
Rhythm: sinus
*Critical Care Note
Total Time (30-74mins, 75-104mins- exclusive of procedures): 50 minutes
Data Reviewed
Source: patient and family (Daughter at bedside states that she came in to find her lying on her side and could not get up. Daughter noticed the left facial droop)
Prescriptions/Medications Considered But Not Given:
Consider TNK. However there is unknown start time. Her last time seen normal was at the latest 3:30 AM.
Patient Management
Discussion with other providers: Office Cleaner (Case discussed with neurology)
Escalation/DeEscalation of care consider admission/obs:
Patient seen and evaluated on arrival. 83-year-old female presents with dense left parous. Found to have right M1 occlusion. Unknown start time of symptoms as her last time normal was around 3:30 AM putting her outside the window. Daughter
states that she unfortunately's been off of Eliquis due to GI issues. She has been unable to get back on it. She is in normal sinus rhythm. Case initially discussed with [place] interventionalists but due to weather, flight is not an option. Given
the fact that [place] is closer by ground, discussed with [place] neurology who accepts to the emergency department for consideration of IAT. Patient's blood pressure remained stable. Exam is unchanged.
Case was also discussed with ED attending at [place]. Daughter updated
ED Attending Note
-
Portions of this chart may have been created with voice recognition software.� Occasional wrong word or��sound alike� substitutions may have occurred due to the inherent limitations of voice recognition software.
Discharge Plan
Departure
Patient Disposition: Acute Care Hospital
Date of Disposition: 05/29/24
Time of Disposition: 10:15
Discharge Problem:
Acute cerebrovascular accident (CVA)
Prescriptions:
No Action
metoprolol succinate 25 mg Tablet Extended Release 24 Hr
25 mg PO DAILY Qty: 30 0RF
Patient Comments:
09/14/23- patient stated this made her sick and does not want to take it
Eliquis 5 mg Tablet
5 mg PO BID Qty: 60 0RF
Patient Comments:
09/14/23- patient placed on hold dur to copay and can not afford it
diltiazem HCl 120 mg capsule,extended release 12 hr
120 mg PO ONCE 30 Days Qty: 30 0RF
amoxicillin-pot clavulanate 875-125 mg tablet
1 tab PO BID 10 Days Qty: 20 0RF
Hospital Transfer
Other hospital: [facility]
I certify that the patient requires transfer: Yes
Discussed case with accepting physician: Neurology and ED
Reason for transfer: specialties available
Interventions
Interventions:
*Risk Screen - Suicide Last Done: 05/29/24 09:37
*General Assessment Last Done: 05/29/24 09:34
*Neglect/Abuse Screening Last Done: 05/29/24 09:37
*ED- Fall Risk Assessment Last Done: 05/29/24 09:34
*ED COVID-19 Vaccine History Last Done: 05/29/24 09:28
ED- Pulmonary Assessment Last Done: 05/29/24 09:33
ED- Neurological Assessment Last Done: 05/29/24 09:40
ED- Cardiac Assessment Last Done: 05/29/24 09:33
ED Swallowing Screen Last Done: 05/29/24 09:37
Discharge Date and Time
Print Language: SAMI
[2024-05-29 09:20] LABS: % Basophils 0.3 % (0-2); % Eosinophils 0.6 % (0-6); % Immature Granulocytes 0.3 % (0-0.5); % Lymphocytes 27.6 % (20.5-51.1); % Monocytes 6.5 % (1.7-9.3); % Neutrophils 64.7 % (42.2-75.2); Absolute Eosinophils 0.1 10^3/uL (0-0.7); Absolute Lymphocytes 2.5 10^3/uL (1.2-3.4); Absolute Monocytes 0.6 10^3/uL (0.1-0.6); Absolute Neutrophils 5.8 10^3/uL (1.4-6.5); Hematocrit 39.1 % (37.0-47.0); Mean Corp Hgb Conc. 33.2 g/dL (33.0-37.0); Mean Corpuscular Hgb 34.1 pg (27.0-31.0); Mean Corpuscular Volume 102.6 fL (81.0-99.0); Mean Platelet Volume 10.7 fL (7.4-10.4); Nucleated Red Blood Cells % 0 %; Platelet Count 221 10^3/uL (130-400); Red Blood Cell Count 3.81 10^6/uL (4.20-5.40); Red Cell Dist. Width 16.2 % (11.5-14.5); White Blood Cell Count 8.9 10^3/uL (4.8-10.8)
[2024-05-29 09:25] LABS: INR 1.16; PT 15.1 Sec (11.4-14.6)
[2024-05-29] MEDS: ZOFRAN 4 MG IV (09:25)
[2024-05-29 09:26] VITALS: BP 160/82
[2024-05-29 09:27] LABS: ALT (SGPT) 29 U/L (0-35); AST (SGOT) 31 U/L (14-36); Albumin 4.1 g/dl (3.5-5.0); Alkaline Phosphatase 119 U/L (38-126); Blood Urea Nitrogen 21 mg/dl (7-17); Calcium 8.4 mg/dl (8.4-10.2); Carbon Dioxide 24 mmol/L (22-30); Chloride 108 mmol/L (98-107); Glucose 144 mg/dl (70-99); Potassium 4.1 mmol/L (3.5-5.1); Sodium 142 mmol/L (135-145); Total Bilirubin 1.2 mg/dl (0.2-1.3); Total Protein 6.7 g/dl (6.3-8.2); eGFR 44.36
[2024-05-29 09:38] LABS: Troponin I 0.037 ng/ml
[2024-05-29 10:00] VITALS: BP 167/76
[2024-05-29] MEDS: ASPIRIN 300 MG RECTAL (10:12)
== END 2024-05-29 10:30 | disposition short-term general hospital (02) ==
LOC: EMR 08:56
PROVIDERS: EMERGENCY PHYSICIAN Emergency Medicine; FAMILY PHYSICIAN Internal Medicine
DX: I63.9 Cerebral infarction, unspecified (principal); I48.91 Unspecified atrial fibrillation; I10 Essential (primary) hypertension; K50.90 Crohn's disease, unspecified, without complications; K21.9 Gastro-esophageal reflux disease without esophagitis; E55.9 Vitamin D deficiency, unspecified; Z90.49 Acquired absence of other specified parts of digestive tract
CPT/HCPCS: 99284; 96374; 70450; 70496; 70498; 71045; 80053; 82962; 84484; 85025; 85610; 93005; Q9967

== ENCOUNTER 2024-10-21 19:37 | Inpatient (IN) | payer MEDICARE, OTHER, SELFPAY ==
[2024-10-21] VITALS (9 sets, daily range): BP systolic 132–156; BP diastolic 54–86; BMI 20.7
[2024-10-21 13:58] LABS: Hematocrit 36.6 % (37.0-47.0); Hemoglobin 12.0 g/dL (12.0-16.0); Mean Corp Hgb Conc. 32.8 g/dL (33.0-37.0); Mean Corpuscular Volume 98.1 fL (81.0-99.0); Nucleated Red Blood Cells % 0 %; Platelet Count 194 10^3/uL (130-400); Red Cell Dist. Width 15.8 % (11.5-14.5)
--- NOTE | 2024-10-21 15:44 | ED.GENMED ---
History of Present Illness
General
Chief Complaint: Headache
Source: patient
Exam Limitations: none
Time Seen by Provider: 10/21/24 15:20
History of Present Illness
History of Present Illness:
83-year-old female presents with gradually worsening headache since yesterday to the left posterior aspect of her head. She is on Eliquis. She has not missed any doses. She denies any numbness or tingling. She was here at the end of April of
this year for an acute stroke resulting in significant left-sided paralysis. She was emergently transferred to [facility] for thrombectomy. She states all of her weakness has resolved from the stroke prior. Her concern is she had
a headache before her stroke in April. She has a headache today similar to that. However currently she is taking her blood thinners at the time of her stroke in April she was not taking her blood thinner. No fever or cough. She does note stiff
sensation when she tries to turn her head to the left and to the right. No associated vision change or dizziness.
Past History
Past History
ED Past Medical History: Arrthythmia (Atrial fibrillation) and HTN
Phy Exam
Physical Exam
Physical Exam:
General: Well-appearing female no acute respiratory distress
HEENT: Normocephalic atraumaticpupils equal round reactive to light TMs normal face is symmetric
Heart: Regular rate and rhythm
Lungs: Clear no wheeze
Abdomen is soft nontender
Neurologic exam: Alert and oriented x 3 no dysarthria or aphasia no facial asymmetry no drift on exam. No nystagmus. Finger-nose [id number] intact
Extremities: No cyanosis
Course
Orders/Labs/Results
Orders:
Orders
10/21/24 13:18
CT Head W/o Iv Contrast Urgent
Comment:
Reason For Exam: headache posterior
10/21/24 13:33
Complete Blood Count/With Diff Urgent
10/21/24 15:41
Acetaminophen [Tylenol] 650 mg PO NOW STA
10/21/24 15:53
Comprehensive Metabolic Panel Urgent
Magnesium Urgent
Comment: ADDON
10/21/24 16:35
Electrocardiogram (*1) Urgent
Reason for Study: Tachycardia
10/21/24 16:36
EKG- Treatment ONCE
10/21/24 17:30
Add On- LAB Urgent
Tests Added?: magnesium
10/21/24 17:39
Potassium Chloride [KCl] 40 meq 0.9% Sodium Chloride 250 ml [Nss] 250 ml IV NOW
10/21/24 17:45
0.9% Sodium Chloride 1000 ml [Nss] 1,000 ml IV BOLUS
Abnormal Lab Results
10/21/24 10/21/24
13:33 15:53
WBC 11.0 H 10^3/uL
(4.8-10.8)
RBC 3.73 L 10^6/uL
(4.20-5.40)
Hct 36.6 L %
(37.0-47.0)
MCH 32.2 H pg
(27.0-31.0)
MCHC 32.8 L g/dL
(33.0-37.0)
RDW 15.8 H %
(11.5-14.5)
MPV 11.0 H fL
(7.4-10.4)
Absolute Neuts (auto) 7.8 H 10^3/uL
(1.4-6.5)
Absolute Monos (auto) 0.9 H 10^3/uL
(0.1-0.6)
Lymphocytes % 19.9 L %
(20.5-51.1)
Potassium 2.6 L* mmol/L
(3.5-5.1)
Glucose 103 H mg/dl
(70-99)
Calcium 6.0 L* mg/dl
(8.4-10.2)
AST 43 H U/L
(14-36)
ALT 57 H U/L
(0-35)
Total Protein 6.2 L g/dl
(6.3-8.2)
Albumin 3.4 L g/dl
(3.5-5.0)
10/21/24 13:33
10/21/24 15:53
Vital Signs
Initial and Last Documented VS:
Initial Vital Signs
Temp Pulse Resp BP Pulse Ox
98.3 F 57 16 149/64 97
10/21/24 13:14 10/21/24 13:14 10/21/24 13:14 10/21/24 13:14 10/21/24 13:14
Last Documented Vital Signs
Temp Pulse Resp BP Pulse Ox
98.3 F 103 25 147/86 98
10/21/24 13:14 10/21/24 17:45 10/21/24 17:45 10/21/24 17:37 10/21/24 17:45
MDM/Problems Addressed
Differential Diagnosis Includes:
Headache gradual in onset without associated neurologic symptoms. She also notes stiff neck. No fever. Do not suspect infectious source. Question possible cervical strain versus tension headache. No sign of stroke on exam. CT of the head is
pending however given the headache in the setting of Eliquis therapy
*Pulse Oximetry
SaO2: 98
Oxygen Mode of Delivery: Room air
Patient hypoxic: no
*Critical Care Note
Total Time (30-74mins, 75-104mins- exclusive of procedures): Not Applicable
Update Note
Update Note:
CT head shows likely chronic infarct. Labs demonstrate significant hypokalemia and hypocalcemia. Potassium is 2.6 and calcium is 6.0. Magnesium ordered. Potassium K rider ordered. Will admit to for hypokalemia
ED Attending Note
-
Portions of this chart may have been created with voice recognition software.� Occasional wrong word or��sound alike� substitutions may have occurred due to the inherent limitations of voice recognition software.
Discharge Plan
Departure
Patient Disposition: Admit
Date of Disposition: 10/21/24
Time of Disposition: 18:30
Presentation/result/management discussed w/ accepting MD/DO: Hospitalist
Patient with high blood pressure during this ER visit?: No
Discharge Problem:
Atrial fibrillation with rapid ventricular response, Acute hypokalemia
Prescriptions:
No Action
metoprolol succinate 25 mg Tablet Extended Release 24 Hr
25 mg PO DAILY Qty: 30 0RF
atorvastatin [Lipitor] 40 mg Tablet
40 mg PO QPM
acetaminophen [Tylenol] 325 mg Tablet
650 mg PO DAILYPRN PRN (Reason: mild pain)
Eliquis 5 mg tablet
2.5 mg PO BID
Referrals:
NONE,* [Family Provider, Internal Medicine]
Interventions
Interventions:
*General Assessment Last Done: 10/21/24 14:46
*ED- Fall Risk Assessment Last Done: 10/21/24 14:46
*ED COVID-19 Vaccine History Last Done: 10/21/24 14:46
ED- Neurological Assessment Last Done: 10/21/24 14:47
Discharge Date and Time
Print Language: BELARUSIAN
[2024-10-21] MEDS: TYLENOL 650 MG PO (15:46)
[2024-10-21 16:23] LABS: ALT (SGPT) 57 U/L (0-35); AST (SGOT) 43 U/L (14-36); Albumin 3.4 g/dl (3.5-5.0); Alkaline Phosphatase 124 U/L (38-126); Blood Urea Nitrogen 15 mg/dl (7-17); Calcium 6.0 mg/dl (8.4-10.2); Carbon Dioxide 30 mmol/L (22-30); Chloride 104 mmol/L (98-107); Glucose 103 mg/dl (70-99); Potassium 2.6 mmol/L (3.5-5.1); Sodium 141 mmol/L (135-145); Total Protein 6.2 g/dl (6.3-8.2); eGFR > 60.00
[2024-10-21] MEDS: KCL 270 MEQ IV (18:02)
[2024-10-21] MEDS: NSS 1000 IV (18:04)
--- NOTE | 2024-10-21 18:32 | HPS.HSE ---
Family Physician
-
Family Physician: * NONE
Chief Complaint
-
headache\\
History of Present Illness
Patient is a 83-year-old female with past medical history significant for Crohn's Disease, hypertension, hyperlipemia and paroxysmal atrial fibrillation who presented to [facility] ED for evaluation of headache. Patient reports severe headache starting
last night she went to bed and woke this morning with it still present. She reports trying Tylenol at home this morning without relief. Recent history of CVA in April 2024 and she felt she should come get evaluated. She denies any blurry vision,
dizziness, numbness, weakness, nausea, vomiting or diarrhea.
Medical History
Past Medical History
Past Medical History: Reports Other
Additional Past Medical History:
Crohn's Disease
hypertension
hyperlipidemia
paroxysmal atrial fibrillation
Past Surgical History: Reports Other
Additional Past Surgical History:
Partial Small Bowel Resection
T&A
Social History
Tobacco: Non-smoker
Alcohol: None
Drug: None
Personal:
Family History
Family History: Not pertinent
Allergies / Home Medications
Allergies reflects when Allergies were last updated in [employer]
Home Medications with original date entered in [employer]
Allergy/Medication List:
Allergies
Allergy/AdvReac Type Severity Reaction Status Date / Time
No Known Allergies Allergy Verified 10/21/24 13:18
Home Medications
metoprolol succinate 25 mg tablet,extended release 24 hr 25 mg PO DAILY #30 tabs 09/11/23
acetaminophen 325 mg tablet (Tylenol) 650 mg PO DAILYPRN PRN mild pain 10/21/24
apixaban 5 mg tablet (Eliquis) 2.5 mg PO BID 10/21/24
atorvastatin 40 mg tablet (Lipitor) 40 mg PO QPM 10/21/24
Review of Systems
-
History Source: Patient
Constitutional: Reports No Symptoms
EENT: Reports No Symptoms
Respiratory: Reports No Symptoms
Cardiac: Reports No Symptoms
Abdomen/GI: Reports No Symptoms
: Reports No Symptoms
Musculoskeletal: Reports No Symptoms
Skin: Reports No Symptoms
Neurological: Reports Headache
Endocrine: Reports No Symptoms
Hematologic/Lymphatic: Reports No Symptoms
Psych: Reports No Symptoms
Physical Exam
Vital Signs
Vital Signs
Temp Pulse Resp BP Pulse Ox
98.3 F 103 25 147/86 98
10/21/24 13:14 10/21/24 17:45 10/21/24 17:45 10/21/24 17:37 10/21/24 17:45
Physical Exam
General: Well Developed, Well Nourished, No Apparent Distress and Conversant
HEENT: NormoCephalic, Moist mucous membranes and Atraumatic
Respiratory: Clear and Non Labored Respirations
Cardiac: S1/S2 and Regular Rhythm; No Murmur, Rub or Gallop
GI: Soft, Non Tender, Non Distended and Normal Bowel Sounds
Rectal: Deferred by Provider
Genito-urinary: Deferred by me
Musculoskeletal: No Clubbing, No Cyanosis and No Edema
Skin: IV/Catheter Site
Neuro: Awake, AO x 3 and Nonfocal/grossly intact
Hematologic/Lymphatic: No Lymphadenopathy
Psych: Calm and Intact Judgment/Insight
Laboratory Results
-
10/21/24 13:33
10/21/24 15:53
Laboratory Results
Total Bilirubin 1.2 mg/dl (0.2-1.3) 10/21/24 15:53
AST 43 U/L (14-36) H 10/21/24 15:53
ALT 57 U/L (0-35) H 10/21/24 15:53
Alkaline Phosphatase 124 U/L (38-126) 10/21/24 15:53
Data Reviewed
-
CT Scan: Report Reviewed by me (Head: There is a hypodensity within the right basal ganglia which is new from prior examination and may represent a late subacute/chronic infarction in the setting of prior right MCA occlusion. There is no evidence of
acute intracranial hemorrhage.)
Medical Tests (Nuc Med, Echo, EKG etc): Report Reviewed by me (EKG: ATRIAL FLUTTER WITH VARIABLE A-V BLOCK WITH PREMATURE VENTRICULAR OR ABERRANTLY CONDUCTED COMPLEXES POSSIBLE ANTERIOR INFARCT , AGE UNDETERMINED)
Lab Data: Labs Reviewed by me (WBC 11.0, K+ 2.6, Ca+ 6.0 (corrected 6.5), )
Impression/Plan
-
IMPRESSION/PLAN:
#headache 2/2 electrolyte abnormalities vs. new CVA
#Hx CVA 04/2024
EKG: ATRIAL FLUTTER WITH VARIABLE A-V BLOCK WITH PREMATURE VENTRICULAR OR
ABERRANTLY CONDUCTED COMPLEXES
POSSIBLE ANTERIOR INFARCT , AGE UNDETERMINED
Head CT: There is a hypodensity within the right basal ganglia which is new from prior examination and may represent a late subacute/chronic infarction in the setting of prior right MCA occlusion. There is
no evidence of acute intracranial hemorrhage.
- Admit to telemetry
- Consult Neurology
- MRI in AM
- Neuro/NIH per protocol
#electrolyte abnormalities
#hypokalemia
#hypocalcemia
#hypomagnesemia
K+ 2.6, Ca+ 6.0 (corrected 6.5)
chronic diarrhea
- replete
- monitor electrolytes
#hypertension
- continue metoprolol
#hypercholesterolemia
- continue atorvastatin
#paroxysmal atrial fibrillation
- continue Eliquis and metoprolol
#Crohn's Disease
s/p bowel resection
Code status: full code
DVT prophylaxis: Eliquis
[2024-10-21 18:38] LABS: Magnesium 1.0 mg/dl (1.6-2.3)
--- NOTE | 2024-10-21 19:17 | W.PN.UPDATE ---
Update Note
Progress Note Update
This is an addendum to H&P written by Sonia Walker on 10/21/2024. �Patient seen and examined independently with PA.
83-year-old female past medical history of recent stroke in April with minimal left-sided paralysis, paroxysmal atrial fibrillation on Eliquis, hypertension, Crohn's disease status post remote bowel resection, chronic diarrhea, hypercholesteremia,
presenting with headache starting last night on the crown of her head that is constant and central.
She recently had a stroke in April of this year and was transferred to [facility] for thrombectomy.
Vital signs unremarkable.
Labs show leukocytosis of 11. �Potassium 2.6. �Calcium of 6. �Magnesium of 1. �Mild transaminitis.
CT head shows hypodensity within the right basal ganglia which is new from prior examination admitted presented late subacute/chronic infarction in the setting of prior right MCA occlusion. �No evidence of acute intracranial hemorrhage.
Unclear if headache is secondary to electrolyte abnormalities likely from chronic diarrhea versus new CVA as patient has no neurological symptoms. Replete calcium, potassium and magnesium. �Tylenol for headache. �Check MRI brain. �Neurology
consulted. �Continue Eliquis.
[2024-10-21] MEDS: MAGNESIUM SULFATE 50 IV (19:24)
--- NOTE | 2024-10-21 21:00 | PTCARENOTE ---
Patient received as admission from emergency department. Presents to floor via internal transport. No acute distress is noted at time of arrival. Patient able to ambulate from transport stretcher to bed under own power with standby assistance.
Intake assessment and vital signs documented per protocol.
[2024-10-21] MEDS: ELIQUIS 2.5 MG PO (21:20)
[2024-10-21] MEDS: CALCIUM GLUCONATE 290 MG IV (21:59)
[2024-10-22] VITALS (8 sets, daily range): BP systolic 135–170; BP diastolic 71–98; PULSE 83–100; O2SAT 92
[2024-10-22 07:21] LABS: Blood Urea Nitrogen 13 mg/dl (7-17); Calcium 6.9 mg/dl (8.4-10.2); Carbon Dioxide 27 mmol/L (22-30); Chloride 112 mmol/L (98-107); Estimated Creatinine Clearance 48 ml/min; Glucose 73 mg/dl (70-99); HDL Cholesterol 27 mg/dl; LDL Cholesterol, Calculated 34 mg/dl; Magnesium 1.7 mg/dl (1.6-2.3); Potassium 3.3 mmol/L (3.5-5.1); Sodium 142 mmol/L (135-145); Very Low Density Lipoprotein 10 mg/dl (0-30); eGFR > 60.00
--- NOTE | 2024-10-22 07:31 | W.PN.HOSP.TC ---
Today's Communication/Plan
-
see a/p
Assessment / Plan
Assessment / Plan
Assessment/plan
#Headache likely secondary to electrolyte abnormalities vs concern for new CVA
#History of CVA 04/2024
-EKG on presentation atrial flutter with variable AV block with PVC
-Head CT There is a hypodensity within the right basal ganglia which is new from prior examination and may represent a late subacute/chronic infarction in the setting of prior right MCA occlusion. There is no evidence of acute intracranial
hemorrhage.
-MRI brain pending
-Neurology consulted, pending evaluation
#Hypokalemia likely secondary to chronic diarrhea
-Episodes of diarrhea prior to admission, although denies any episodes in the past 24 hours
-Replete
#Secondary hyperparathyroidism with hypocalcemia
#Severe vitamin D deficiency
-Vitamin D levels < 12, PTH 276, calcium 6.9
-Start vitamin D ergocalciferol 50K IU weekly x 6 week
#Paroxysmal atrial fibrillation
-Rate controlled with metoprolol
-Continue anticoagulation with Eliquis
#Crohn's disease s/p bowel resection
-Denies active exacerbation
#Hypercholesterolemia
-Continue statin
CODE STATUS full code
DVT prophylaxis Eliquis
Anticipated Discharge: > 48 hours
Subjective/Interval History
-
Patient seen and examined at bedside. Admits chronic diarrhea previously, but has not had an episode since this admission. Patient states, she is eating and drinking fine. Also reports headache has resolved
Objective Data
-
Labs:
Laboratory Results
10/22/24
06:14
WBC Pending
Hgb Pending
Hct Pending
Plt Count Pending
Sodium 142
Potassium 3.3 L D
Chloride 112 H
Carbon Dioxide 27
BUN 13
Creatinine 0.7
Glucose 73
Calcium 6.9 L*
Vital Signs:
Vital Signs
Temp Pulse Resp BP Pulse Ox
97.7 F 53 14 153/72 97
10/22/24 03:00 10/22/24 03:00 10/22/24 03:00 10/22/24 03:00 10/22/24 03:00
Review of Systems
-
All other systems: Reviewed and negative (Except as documented)
Physical Exam
-
General: Well Developed, Well Nourished and No Apparent Distress
HEENT: Normocephalic and Atraumatic
Respiratory: Clear to Auscultation
Cardiac: Regular Rhythm and S1/S2
GI: Soft, Nontender, Nondistended and Normal Bowel Sounds
Musculoskeletal: No Edema
Neuro: Awake, Alert, Oriented and AO x 3
Psych: Calm
[2024-10-22 07:47] LABS: Hematocrit 30.8 % (37.0-47.0); Hemoglobin 10.3 g/dL (12.0-16.0); Mean Corp Hgb Conc. 33.4 g/dL (33.0-37.0); Mean Corpuscular Volume 96.3 fL (81.0-99.0); Platelet Count 148 10^3/uL (130-400); Red Cell Dist. Width 15.9 % (11.5-14.5)
--- NOTE | 2024-10-22 08:02 | W.PN.UPDATE ---
Update Note
Progress Note Update
I saw and evaluated the patient. I reviewed the resident�s note and agree with findings and plan as documented in the resident�s note.
Denies CP/SOB. Denies diarrhea since admission.
Gen: NAD, Awake and alert
Eyes: EOMI, PERRLA, no scleral icterus.
Neck: supple.
CV: tachy, irreg/irreg, +S1/S2, no m/r/g.
Resp: CTAB, no rales, wheezes, or rhonchi.
Abd: +BS, soft, NT, ND
Skin: No rashes.
Neuro: CN 2-12 intact, non-focal.
Psych: Normal mood and affect.
CT brain: There is a hypodensity within the right basal ganglia which is new from prior examination and may represent a late subacute/chronic infarction in the setting of prior right MCA occlusion. There is no evidence of acute intracranial
hemorrhage.
Headache:
-likely due to electrolyte abnormalities, less likely due to new CVA
-check MRI brain
-c/s neuro
Electrolyte abnormalities:
-due to chronic diarrhea
-hypokalemia
-hypocalcemia
-hypomagnesemia
-replete all, trend
PAF/flutter with RVR:
-tachy/courtney
-correct electrolytes
-Cont Eliquis/BB
-c/s cards
Other problems:
Essential HTN: cont BB
HLD: cont statin
Crohn's Disease s/p bowel resection
FULL/Eliquis
[2024-10-22] MEDS: TOPROL XL 25 MG PO (09:11)
[2024-10-22] MEDS: ELIQUIS 2.5 MG PO ×2 (09:12→20:01)
[2024-10-22] MEDS: CALCIUM GLUCONATE 100 IV (09:13)
[2024-10-22 09:23] LABS: Vitamin D, 25-OH*** < 12.8 ng/mL (30-80)
[2024-10-22] MEDS: TYLENOL 650 MG PO (09:27)
[2024-10-22] MEDS: KCL 270 MEQ IV (11:06)
[2024-10-22] MEDS: DRISDOL (VITAMIN D2) 50000 UNITS PO (15:08)
[2024-10-22] MEDS: ROCALTROL 0.25 MCG PO (15:08)
--- NOTE | 2024-10-22 17:03 | PTOTSP ---
Speech Therapy Evaluation
Spoke with RN, who stated pt is managing regular solids and thin liquids with no difficulty. No difficulty with meds either.�Pt is oriented and pleasant.
Pt seen in room for cognitive-linguistic assessment while dtr was present.� Pt admitted due to headache. Per MD, headache likely secondary to electrolyte abnormality vs new CVA. History of CVA (04/2024). Pt denies any changes in speech, cognition,
and language skills. Verbal output characterized by fluent speech and no observable anomia. Pt scored 23/30 (normal >26) on MOCA ([place] Cognitive Assessment) Version 8.1. Pt reports cognitive-linguistic skills are at baseline. Skilled speech
therapy services not warranted at this time.
Recommendations:
1. Speech therapy services are not recommended at this time as there are no concerns with swallow function and pt appears to be functioning at her baseline cognitively.
[2024-10-22] MEDS: LIPITOR 40 MG PO (18:01)
[2024-10-23] VITALS (7 sets, daily range): BP systolic 120–165; BP diastolic 68–98
[2024-10-23] MEDS: LOPRESSOR 2.5 MG IV (00:14)
--- NOTE | 2024-10-23 00:40 | PTCARENOTE ---
Patient heart rate noted to be greater than 100 BPM consistently from start of shift. Ranges from mid 90's to 140's. Provider informed and Lopressor 2.5mg provided. Patient will continue to be monitored via telemetry overnight.
--- NOTE | 2024-10-23 07:14 | W.PN.HOSP.TC ---
Today's Communication/Plan
-
A/P
Assessment / Plan
Assessment / Plan
Assessment/plan
#Headache likely secondary to electrolyte abnormalities vs concern for new CVA
#History of CVA 04/2024
-EKG on presentation atrial flutter with variable AV block with PVC
-Head CT There is a hypodensity within the right basal ganglia which is new from prior examination and may represent a late subacute/chronic infarction in the setting of prior right MCA occlusion. There is no evidence of acute intracranial
hemorrhage.
-MRI brain pending
-Neurology consulted, pending evaluation
#Paroxysmal atrial fibrillation with RVR
#Atrial flutter on presentation
-Currently in A-fib on telemetry, heart rates in the 130s
-On [employer] rate control metoprolol succinate
-Cardiology consulted
-Continue anticoagulation with Eliquis
#Hypokalemia likely secondary to chronic diarrhea
-Episodes of diarrhea prior to admission, although denies any episodes in the past 24 hours
-Urine potassium<15 confirming GI loss, not renal wasting
-Replete
#Secondary hyperparathyroidism with hypocalcemia
#Severe vitamin D deficiency
-Vitamin D levels < 12, PTH 276,
-Start vitamin D ergocalciferol 50K IU weekly x 6 week
#Crohn's disease s/p bowel resection
-Denies active exacerbation
#Hypercholesterolemia
-Continue statin
CODE STATUS full code
DVT prophylaxis Eliquis
Anticipated Discharge: > 48 hours
Subjective/Interval History
-
Date of Service: October 23, 2024
Objective Data
-
Labs:
Laboratory Results
10/23/24
06:00
WBC Pending
Hgb Pending
Hct Pending
Plt Count Pending
Sodium Pending
Potassium Pending
Chloride Pending
Carbon Dioxide Pending
BUN Pending
Creatinine Pending
Glucose Pending
Calcium Pending
Vital Signs:
Vital Signs
Temp Pulse Resp BP Pulse Ox
98.8 F 92 16 122/81 94
10/23/24 03:09 10/23/24 03:09 10/23/24 03:09 10/23/24 03:09 10/23/24 03:09
I&O
10/22/24 10/23/24 10/24/24
06:59 06:59 06:59
Intake Total 480 / 720 240 / 240
Balance 480 / 720 240 / 240
Review of Systems
-
All other systems: Reviewed and negative (Except as documented)
Physical Exam
-
General: Well Developed, Well Nourished and No Apparent Distress
HEENT: Normocephalic and Atraumatic
Respiratory: Clear to Auscultation
Cardiac: S1/S2 and Irregular Rhythm
GI: Soft, Nontender, Nondistended and Normal Bowel Sounds
Musculoskeletal: No Edema
Neuro: Awake, Alert, Oriented and AO x 3
Psych: Calm
[2024-10-23] MEDS: TOPROL XL 25 MG PO ×2 (07:46→15:55)
[2024-10-23] MEDS: ROCALTROL 0.25 MCG PO (07:46)
[2024-10-23] MEDS: ELIQUIS 2.5 MG PO ×2 (07:47→20:09)
--- NOTE | 2024-10-23 08:40 | W.PN.UPDATE ---
Update Note
Progress Note Update
I saw and evaluated the patient. I reviewed the resident�s note and agree with findings and plan as documented in the resident�s note.
Denies CP/SOB/headache.
Gen: NAD, Awake and alert
Eyes: EOMI, PERRLA, no scleral icterus.
Neck: supple.
CV: Remains tachy, irreg/irreg, +S1/S2, no m/r/g.
Resp: Remains CTAB, no rales, wheezes, or rhonchi.
Abd: +BS, soft, NT, ND
Skin: No rashes.
Neuro: Remains CN 2-12 intact, non-focal.
Psych: Normal mood and affect.
CT brain: There is a hypodensity within the right basal ganglia which is new from prior examination and may represent a late subacute/chronic infarction in the setting of prior right MCA occlusion. There is no evidence of acute intracranial
hemorrhage.
Headache:
-likely due to electrolyte abnormalities, less likely due to new CVA
-MRI brain done, read pending
-neuro to see today
Electrolyte abnormalities:
-likely due to chronic diarrhea
-hypokalemia, 40meq PO K
-hypocalcemia, 2g IV Ca
-hypomagnesemia, 2g IV Mg
-replete all, trend
-elevated iPTH and low 25-OH Vit D consistent with secondary hyperparathyroidism. Vit D initiated.
PAF/flutter with RVR:
-with tachy/courtney, c/s cards
-correct electrolytes
-Cont Eliquis/BB
Other problems:
Essential HTN: cont BB
HLD: cont statin
Crohn's Disease s/p bowel resection
Family updated at bedside.
FULL/Eliquis
[2024-10-23 08:58] LABS: Hematocrit 33.9 % (37.0-47.0); Hemoglobin 11.3 g/dL (12.0-16.0); Mean Corp Hgb Conc. 33.3 g/dL (33.0-37.0); Mean Corpuscular Volume 97.7 fL (81.0-99.0); Nucleated Red Blood Cells % 0 %; Platelet Count 209 10^3/uL (130-400); Red Cell Dist. Width 15.9 % (11.5-14.5)
[2024-10-23 09:20] LABS: Blood Urea Nitrogen 12 mg/dl (7-17); Calcium 7.7 mg/dl (8.4-10.2); Carbon Dioxide 27 mmol/L (22-30); Chloride 108 mmol/L (98-107); Estimated Creatinine Clearance 48 ml/min; Glucose 117 mg/dl (70-99); Magnesium 1.4 mg/dl (1.6-2.3); Potassium 3.6 mmol/L (3.5-5.1); Sodium 140 mmol/L (135-145); eGFR > 60.00
[2024-10-23 09:47] LABS: TSH 3.63 uIU/ml (0.47-4.68)
[2024-10-23] MEDS: MAGNESIUM OXIDE 400 MG PO (10:18)
[2024-10-23] MEDS: KCL 40 MEQ PO (10:19)
[2024-10-23] MEDS: MAGNESIUM SULFATE 50 IV (12:04)
[2024-10-23] MEDS: CALCIUM GLUCONATE 100 IV (14:03)
--- NOTE | 2024-10-23 16:18 | CON.CAR ---
Addendum entered and electronically signed by Jona Everett MD 10/23/24 16:51:
Correction: Patient's rhythm seems to be atrial flutter with variable conduction.
Original Note:
Consultation
Consultation Request
Date/Time Consultation Requested: 10/23/24 at 11:29 AM
Date/Time Consultation Performed: 10/23/2024 at 3 PM
Requesting Provider: Alondra
Performing Provider: Marguerite
Reason for Consultation: afib
Medical History
-
Chief Complaint: Elevated heart rate
History of Present Illness:
83-year-old female with Crohn's disease, paroxysmal atrial fibrillation on Eliquis, CVA in April 2024, and hypertension who presented to the emergency department with headache. We are consulted for tachybradycardia syndrome. She was initially
diagnosed with atrial fibrillation in August 2023. Has been on metoprolol which recently had to be reduced to 25 mg daily due to bradycardia. During this admission she has been in and out of atrial fibrillation with heart rates up to the 130s when
in A-fib. She is asymptomatic. When she is in sinus rhythm, heart rates are in the 60s. Her daughter reports that sometimes heart rates are as low as the 50s at home but patient is never symptomatic. Her headache has improved since admission and
she now feels back to normal. MRI brain showed findings of likely evolving chronic right basal ganglia infarction/intraparenchymal hematoma but no acute infarction. Awaiting neurology evaluation.
Past Medical History
Past Medical History: Arrhythmias, CVA, HTN and Other (Crohn's disease)
Past Surgical History: Bowel Resection
Social History
Tobacco: Non-Smoker
Alcohol: None
Drug: None
Personal:
Living: With Family
Employment: Retired
Family History
Family History: Reviewed & Not Pertinent
Allergies / Home Medications
Allergy/AdvReac Type Severity Reaction Status Date / Time
No Known Allergies Allergy Verified 10/21/24 13:18
�Medication �Instructions �Recorded �Confirmed �Type
metoprolol succinate 25 mg 25 mg PO DAILY #30 tabs 09/11/23 10/21/24 Rx
tablet,extended release 24 hr
acetaminophen 325 mg tablet 650 mg PO DAILYPRN PRN mild pain 10/21/24 10/21/24 History
(Tylenol)
apixaban 5 mg tablet (Eliquis) 2.5 mg PO BID Blood Clot 10/21/24 10/21/24 History
Prevention/Tx
atorvastatin 40 mg tablet (Lipitor) 40 mg PO QPM High Cholesterol 10/21/24 10/21/24 History
Review of Systems
-
All other systems: Negative unless noted
Physical Exam
Vital Signs
Temp Pulse Resp BP Pulse Ox
97.6 F 143 18 120/86 94
10/23/24 11:00 10/23/24 15:55 10/23/24 11:00 10/23/24 11:00 10/23/24 11:00
Lab Results
10/23/24 08:27
10/23/24 08:27
Physical Exam
General: Well Developed and Well Nourished
Respiratory: Clear
Cardiac: Irregular Rhythm; Negative Murmur or Peripheral Edema
Neuro: AO x 3
Impression / Plan
-
83-year-old female with Crohn's disease, paroxysmal atrial fibrillation on Eliquis, CVA in April 2024, and hypertension who presented to the emergency department with headache. We are consulted for tachybradycardia syndrome.
Stoneworking Sander: Nate
Paroxysmal atrial fibrillation
-She is in and out of A-fib with RVR on telemetry with heart rates up to 130s. Asymptomatic. Sinus heart rate in the 60s.
-Extensive discussion with her and daughter. They have a lot of concerns about medication side effects.
-Try increasing metoprolol to 25 mg twice daily. I explained that if she develops symptomatic bradycardia, may need PPM or rhythm control strategy though I'm not sure that she would be happy with the side effects of antiarrhythmic medications either
-[id number] 6 (female, age, hypertension, stroke)
-Continue Eliquis 2.5 mg twice daily (appropriate dose given age and weight)
Headache
-MRI brain showed findings of likely evolving chronic right basal ganglia infarction/intraparenchymal hematoma but no acute infarction
-Neurology to evaluate
Data Reviewed
-
EKG: Tracing Personally Visualized and interpreted (tele: intermittent AF w RVR), Discussed with Physician, Discussed with Patient and Discussed with Family
MRI: Report Reviewed by me
Medical Tests (Nuc Med, Echo etc): Report Reviewed by me
Labs: Labs Reviewed by me, Discussed with Patient and Discussed with Family
--- NOTE | 2024-10-23 16:46 | CM ---
Patient seen at bedside
IA Completed
Lives with daughter 2 story home, 1st floor bed/bath, 3 CHRIS
PLOF: independent, walker
DME: Walker, shower chair
Has had [facility] in past, denies SNF
PT rec home health
options reviewed request [facility]
Referral entered in [facility]
PCP: Brien Daigle
PHARMACY: [facility]
PLAN: home with [facility] when stable
[2024-10-23] MEDS: LIPITOR 40 MG PO (17:01)
--- NOTE | 2024-10-23 18:40 | CON.NEURO ---
Neuro Assessment/Plan
Assessment
Brain MRI imgs and rept rev'd, 'Findings of likely evolving chronic right basal ganglia infarction/intraparenchymal hematoma. There is no evidence acute infarction. ' which I agree
83 year old woman acute headache in someone who does not habitually suffer from headaches, concern for another stroke/bleed which was ruled out on MRI
chronic Right M1 stroke, s/p thrombectomy, pt and dtr numerous questions re prior stroke and the current MRI findings, I think is a showing sequela from the prior Stroke in April, as opposed to a hematoma because a five month old hematoma wouldn�t
make sense. It�s most definitely not acute blood, for which I would have held Eliquis for 48 to 96 hours after the hematoma stopped expanding, and she is most definitely outside of that time range. so she stays on Eliquis.
Her headache is resolved and by description and exam due to poor posture which may have caused occipital neuralgia and I instructed them a neck exercise should it recur.
all questions answered.
Consultation
Order
Date of Consultation: 10/23/24
Requesting Provider: Alcon
Reason for Consult: headache
Subjective/Objective
Subjective Data
Date of Service: October 23, 2024
Patient is a 83-year-old female with past medical history significant for Crohn's Disease, hypertension, hyperlipemia and paroxysmal atrial fibrillation who presented to [facility] ED for evaluation of headache. Patient reports severe headache starting
last night she went to bed and woke this morning with it still present. She reports trying Tylenol at home this morning without relief. Recent history of CVA in April 2024 and she felt she should come get evaluated. She denies any blurry vision,
dizziness, numbness, weakness, nausea, vomiting or diarrhea.
04/2024 stroke with right M1 occlusion, transferred to to [place], got thrombectomy, small infarct in right basal ganglia/castaneda overall recovered well wiht mild left sided deficits. at the time her Eliquis was being held for recent bleeding, and
has since been restarted. Seen this evening her headache resolved. she descried holocephalic squeezing with skull base pain/tenderness which was worse with head mvoement
Objective Data
Vital Signs
Temp Pulse Resp BP Pulse Ox
36.7 C 143 16 153/97 95
10/23/24 15:00 10/23/24 15:55 10/23/24 15:00 10/23/24 15:00 10/23/24 15:00
Lab Results
10/23/24 08:27
10/23/24 08:27
Sodium 140 mmol/L (135-145) 10/23/24 08:27
Potassium 3.6 mmol/L (3.5-5.1) 10/23/24 08:27
BUN 12 mg/dl (7-17) 10/23/24 08:27
Glucose 117 mg/dl (70-99) H 10/23/24 08:27
Calcium 7.7 mg/dl (8.4-10.2) L 10/23/24 08:27
Phosphorus 3.7 mg/dl (2.5-4.5) 10/22/24 06:14
LDL Cholesterol, Calc 34 mg/dl 10/22/24 06:14
Patient Allergies
No Known Allergies Allergy (Verified 10/21/24 13:18)
Physical Exam
-
AAOx3, speech clear, language intact,
VFF, EOMI, L facial droop
LUE/LE 5-/5, RUE/LE 5/5
exaggeration of cervical lordosis
Medications
-
Active Medications
Generic Name Dose Route Start Last Admin
Trade Name Freq PRN Reason Stop Dose Admin
Acetaminophen 650 mg 10/21/24 20:44 10/22/24 09:27
Acetaminophen 325 Mg Tablet PO 11/18/24 20:43 650 mg
Q4HPRN PRN Administration
mild pain/ALCOCER/temp> 100.4F
Apixaban 2.5 mg 10/21/24 21:00 10/23/24 07:47
Apixaban (Eliquis) 2.5 Mg Tablet PO 11/18/24 20:59 2.5 mg
BID JAY Administration
Atorvastatin Calcium 40 mg 10/22/24 18:00 10/23/24 17:01
Atorvastatin (Lipitor) 40 Mg Tablet PO 11/19/24 17:59 40 mg
QPM JAY Administration
Calcitriol 0.25 mcg 10/22/24 14:00 10/23/24 07:46
Calcitriol 0.25 Microgram Capsule PO 11/19/24 13:59 0.25 mcg
DAILY JAY Administration
Ergocalciferol 50,000 units 10/22/24 14:00 10/22/24 15:08
Ergocalciferol (Vitamin D-2) 47198 Units Capsule PO 11/19/24 13:59 50,000 units
Q7D JAY Administration
Metoprolol Succinate 25 mg 10/24/24 08:00
Metoprolol 25 Mg Extended Release Tablet PO 11/21/24 07:59
BID JAY
Sodium Chloride 0 flush 10/21/24 21:00
Sodium Chloride 0.9% (Flush) Syringe IV 11/18/24 20:59
PER PROTOCOL JAY
Home Medications
�Medication �Instructions �Recorded
metoprolol succinate 25 mg 25 mg PO DAILY #30 tabs 09/11/23
tablet,extended release 24 hr
acetaminophen 325 mg tablet 650 mg PO DAILYPRN PRN mild pain 10/21/24
(Tylenol)
apixaban 5 mg tablet (Eliquis) 2.5 mg PO BID Blood Clot 10/21/24
Prevention/Tx
atorvastatin 40 mg tablet (Lipitor) 40 mg PO QPM High Cholesterol 10/21/24
[2024-10-24] VITALS (7 sets, daily range): BP systolic 132–155; BP diastolic 84–98; PULSE 116; O2SAT 96; BMI 21.1
[2024-10-24] MEDS: LOPRESSOR 2.5 MG IV ×2 (01:48→04:28)
[2024-10-24 05:40] LABS: Hematocrit 35.3 % (37.0-47.0); Hemoglobin 11.6 g/dL (12.0-16.0); Mean Corp Hgb Conc. 32.9 g/dL (33.0-37.0); Mean Corpuscular Volume 97.8 fL (81.0-99.0); Nucleated Red Blood Cells % 0 %; Platelet Count 179 10^3/uL (130-400); Red Cell Dist. Width 15.7 % (11.5-14.5)
[2024-10-24 06:04] LABS: Blood Urea Nitrogen 16 mg/dl (7-17); Calcium 8.2 mg/dl (8.4-10.2); Carbon Dioxide 25 mmol/L (22-30); Chloride 110 mmol/L (98-107); Estimated Creatinine Clearance 42 ml/min; Glucose 91 mg/dl (70-99); Magnesium 1.9 mg/dl (1.6-2.3); Potassium 3.9 mmol/L (3.5-5.1); Sodium 139 mmol/L (135-145); eGFR > 60.00
[2024-10-24] MEDS: ROCALTROL 0.25 MCG PO (07:52)
[2024-10-24] MEDS: ELIQUIS 2.5 MG PO ×2 (07:52→20:41)
[2024-10-24] MEDS: TOPROL XL 25 MG PO (07:53)
[2024-10-24] MEDS: TOPROL XL 12.5 MG PO (11:16)
--- NOTE | 2024-10-24 11:27 | W.PN.HOSP.TC ---
Today's Communication/Plan
-
Additional dose of Toprol
Heart rate control
Continue Eliquis
Cardiology recs
Assessment / Plan
Assessment / Plan
Gen: NAD, Awake and alert
Eyes: EOMI, no scleral icterus.
Neck: supple.
CV: Remains tachy, irreg/irreg, +S1/S2, no m/r/g.
Resp: Remains CTAB, no rales, wheezes, or rhonchi.
Abd: +BS, soft, NT, ND
Skin: No rashes.
Neuro: Remains CN 2-12 intact, non-focal.
Psych: Normal mood and affect.
Assessment/plan
#Paroxysmal atrial fibrillation/flutter with RVR
#Atrial flutter on presentation
-Currently in A-fib on telemetry, heart rates in the 100-140s
-On [employer] G[employer] rate control metoprolol succinate which was increased to 25 mg twice daily. Additional dose of 12.5 mg of Toprol. Monitor heart rate. May need adjustment of additional medication.
-Cardiology following
-Continue anticoagulation with Eliquis
#Headache
#History of CVA 04/2024
-EKG on presentation atrial flutter with variable AV block with PVC
-Head CT There is a hypodensity within the right basal ganglia which is new from prior examination and may represent a late subacute/chronic infarction in the setting of prior right MCA occlusion. There is no evidence of acute intracranial
hemorrhage.
-MRI brain resulted noted.
-Neurology consulted and correspondence noted with chronic intracranial hemorrhage.
#Hypokalemia likely secondary to chronic diarrhea
-Episodes of diarrhea prior to admission, although denies any episodes in the past 24 hours
-Urine potassium<15 confirming GI loss, not renal wasting
-Replete
#Secondary hyperparathyroidism with hypocalcemia
#Severe vitamin D deficiency
-Vitamin D levels < 12, PTH 276,
-Started vitamin D ergocalciferol 50K IU weekly x 6 week
#Crohn's disease s/p bowel resection
-Denies active exacerbation
#Hypercholesterolemia
-Continue statin
CODE STATUS full code
DVT prophylaxis Eliquis
Anticipated Discharge: 24 - 48 hours
Subjective/Interval History
-
Date of Service: October 24, 2024
in afib/aflutter
HR elevated
denies palpations
received lopressor 2.5mg x 2 overnight
wants to go home
Objective Data
-
Labs:
Laboratory Results
10/24/24
05:14
WBC 8.6
Hgb 11.6 L
Hct 35.3 L
Plt Count 179
Sodium 139
Potassium 3.9
Chloride 110 H
Carbon Dioxide 25
BUN 16
Creatinine 0.8
Glucose 91
Calcium 8.2 L
Vital Signs:
Vital Signs
Temp Pulse Resp BP Pulse Ox
98.3 F 132 16 155/90 96
10/24/24 07:00 10/24/24 11:16 10/24/24 07:00 10/24/24 07:53 10/24/24 07:30
I&O
10/23/24 10/24/24 10/25/24
06:59 06:59 06:59
Intake Total 480 / 720 1320 / 1320
Output Total 480 / 480
Balance 480 / 720 840 / 840
--- NOTE | 2024-10-24 11:50 | W.PN.CD ---
Addendum entered and electronically signed by Homero Sullivan MD 10/24/24 18:00:
I saw and evaluated the patient with the resident, Fiorella Aguilar MD. I was present for the avendaño portions of the history and exam and personally performed the MDM, including reviewing labs, assessing the patients PAF with RVR and HTN, and
directing management plan. I agree with the residents note with my comments/adjustments below:
The patient is chronically concerned about side effects of medications. She had rectal bleeding and despite being told by GI and me that it was now time to resume Eliquis that she did not. She subsequently had a stroke. I told her that it was also
important to consider the benefits of therapy and weigh them versus potential side effects or real side effects of the medications.
The patient comes in with a headache and acute stroke has been excluded. She has been having PAF with rapid rates. In the past concerns that the patient might in the future develop problems with with side effects of metoprolol led to dose reduction
of the metoprolol.
I have recommended we increase metoprolol and continue Eliquis.
Original Note:
Today's Communication / Plan
-
Increase Toprol to 50 mg, BID.
Impression / Plan
-
83-year-old female with Crohn's disease, paroxysmal atrial fibrillation on Eliquis, CVA in April 2024, and hypertension who presented to the emergency department with headache.
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 Sullivan
#Paroxysmal atrial fibrillation
[id number]
Patient is in and out of A-fib with RVR on telemetry with heart rates up to 140s. No bradycardia in the past 24 hrs.
Asymptomatic.
Will increase Toprol to 50 mg, BID.
Continue Eliquis 2.5 mg twice daily (appropriate dose given age and weight)
#Headache
#History of CVA 04/2024 ( Patient was not on Eliquis at that time, due to GI issues )
MRI brain showed findings of likely evolving chronic right basal ganglia infarction/intraparenchymal hematoma but no acute infarction
Neurology evaluated, ok to continue Eliquis.
Physical Exam
Vital Signs/Labs
Vital Signs
Temp Pulse Resp BP Pulse Ox
98.3 F 132 16 155/90 96
10/24/24 07:00 10/24/24 11:16 10/24/24 07:00 10/24/24 07:53 10/24/24 07:30
10/23/24 10/24/24 10/25/24
06:59 06:59 06:59
Actual Weight 117 lb
10/24/24 05:14
10/24/24 05:14
Magnesium 1.9 mg/dl (1.6-2.3) 10/24/24 05:14
Triglycerides 53 mg/dl (10-149) 10/22/24 06:14
LDL Cholesterol, Calc 34 mg/dl 10/22/24 06:14
VLDL Cholesterol, Calc 10 mg/dl (0-30) 10/22/24 06:14
HDL Cholesterol 27 mg/dl 10/22/24 06:14
TSH 3.63 uIU/ml (0.47-4.68) 10/23/24 08:27
Physical Exam
Constitutional: No acute distress
Cardiovascular: Rhythm/rate is irregular and Other (tachycardic)
Respiratory: Lungs clear to auscul.
Neuro/Psych: Alert, Oriented and AO x 3
Data Reviewed
-
Date of Service: October 24, 2024
EKG: Tracing Personally Visualized and interpreted
Echo: Report Reviewed by me
Labs: Labs Reviewed by me
[2024-10-24 12:47] LABS: 24 Hour Urine Total Volume Random mL; Chloride, Urine 195 mmol/L; Creatinine, Urine per Volume 41 mg/dL; Urine Collection Length Random hr
[2024-10-24] MEDS: LIPITOR 40 MG PO (17:10)
[2024-10-24] MEDS: TOPROL XL 50 MG PO (20:40)
[2024-10-25] VITALS (7 sets, daily range): BP systolic 128–145; BP diastolic 68–97; PULSE 120; O2SAT 98
[2024-10-25 06:20] LABS: Blood Urea Nitrogen 15 mg/dl (7-17); Calcium 7.9 mg/dl (8.4-10.2); Carbon Dioxide 25 mmol/L (22-30); Chloride 109 mmol/L (98-107); Estimated Creatinine Clearance 42 ml/min; Glucose 82 mg/dl (70-99); Magnesium 1.7 mg/dl (1.6-2.3); Potassium 3.7 mmol/L (3.5-5.1); Sodium 139 mmol/L (135-145); eGFR > 60.00
[2024-10-25] MEDS: TOPROL XL 50 MG PO ×2 (08:01→20:09)
[2024-10-25] MEDS: ELIQUIS 2.5 MG PO ×2 (08:02→20:11)
[2024-10-25] MEDS: ROCALTROL 0.25 MCG PO (08:04)
[2024-10-25] MEDS: MAGNESIUM SULFATE 100 IV (08:23)
--- NOTE | 2024-10-25 10:43 | VNURNOTE ---
Home Health Liaison met with patient and daughter at bedside to discuss [facility] nurse/therapy, visits, schedule and homebound status. Patient is agreeable and understands that visits at home will be 2-3 x per week to assess and teach medical
management. Patient is aware that [facility] will contact them for start of care in 1-2 days after discharge from . Provided contact number for [facility].
[facility] referral accepted in [facility].
--- NOTE | 2024-10-25 11:46 | W.PN.HOSP.TC ---
Today's Communication/Plan
-
Continue with increased dose of Toprol 50 twice daily
If heart rate remains uncontrolled may need additional agents
Continue with Eliquis
Monitor electrolytes closely
Assessment / Plan
Assessment / Plan
Gen: NAD, Awake and alert
Eyes: EOMI, no scleral icterus.
Neck: supple.
CV: Remains tachy, irreg/irreg, +S1/S2, no m/r/g.
Resp: Remains CTAB, no rales, wheezes, or rhonchi.
Abd: +BS, soft, NT, ND
Skin: No rashes.
Neuro: Remains CN 2-12 intact, non-focal.
Psych: Normal mood and affect.
Assessment/plan
#Paroxysmal atrial fibrillation/flutter with RVR
#Atrial flutter on presentation
-remains A-fib on telemetry, heart rates in the 110-130s at rest earlier this morning and now with some improvement to 110s
-On MANUFACTURING QUALITY MANAGER rate control metoprolol succinate which was increased to 50 mg BID. May need additional agent-?anti-arrhythmic.
-Cardiology following
-Continue anticoagulation with Eliquis
#Headache
#History of CVA 04/2024
-EKG on presentation atrial flutter with variable AV block with PVC
-Head CT There is a hypodensity within the right basal ganglia which is new from prior examination and may represent a late subacute/chronic infarction in the setting of prior right MCA occlusion. There is no evidence of acute intracranial
hemorrhage.
-MRI brain resulted noted.
-Neurology consulted and correspondence noted with chronic intracranial hemorrhage.
#Hypokalemia likely secondary to chronic diarrhea
-Episodes of diarrhea prior to admission,
-Replete prn
#Secondary hyperparathyroidism with hypocalcemia
#Severe vitamin D deficiency
-Vitamin D levels < 12, PTH 276,
-Started vitamin D ergocalciferol 50K IU weekly x 6 week
#Crohn's disease s/p bowel resection
-Denies active exacerbation
#Hypercholesterolemia
-Continue statin
CODE STATUS full code
DVT prophylaxis Eliquis
d/w with daughter at bedside in details
Anticipated Discharge: 24 - 48 hours
Subjective/Interval History
-
Date of Service: October 25, 2024
remains in afib RVR
denies palpations
Objective Data
-
Labs:
Laboratory Results
10/25/24
05:07
Sodium 139
Potassium 3.7
Chloride 109 H
Carbon Dioxide 25
BUN 15
Creatinine 0.8
Glucose 82
Calcium 7.9 L
Vital Signs:
Vital Signs
Temp Pulse Resp BP Pulse Ox
97.4 F 110 16 128/84 98
10/25/24 11:27 10/25/24 11:27 10/25/24 11:27 10/25/24 11:27 10/25/24 11:27
I&O
10/24/24 10/25/24 10/26/24
06:59 06:59 06:59
Intake Total 1320 / 1320 1660 / 1660
Output Total 480 / 480
Balance 840 / 840 1660 / 1660
Data Reviewed
-
Total Time Spent with Patient (in minutes): 55
--- NOTE | 2024-10-25 14:00 | W.PN.CD ---
Addendum entered and electronically signed by Homero Sullivan MD 10/25/24 15:39:
Follow-up in our office November 14 at 10:40 AM with JANELLE Arauz
Original Note:
Today's Communication / Plan
-
Will plan lenient heart rate control if she remains asymptomatic
I reviewed the importance of taking medications as prescribed and always considering both the benefits/expected benefits versus risks or complications of treatment
If fast A-fib persist and becomes symptomatic we will need to become more aggressive with treatment. Currently the patient is asymptomatic and prefers an on aggressive treatment strategy. I would like to see heart rates less than 120 but I do not
think we need to keep her here. We will arrange outpatient follow-up.
For home Eliquis 2.5 twice daily, metoprolol ER 100 mg daily, and Cardizem CD 120 mg daily
Our office will reach out for a follow-up visit.
Cardiology will sign off.
Impression / Plan
-
83-year-old female with Crohn's disease, paroxysmal atrial fibrillation on Eliquis, CVA in April 2024, and hypertension who presented to the emergency department with headache.
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 Sullivan
Paroxysmal atrial fibrillation
- Rate: still fast on metoprolol ER 50 BID will add dilt ER 120 a day
- Rhythm: AFib, typically paroxysmal, this episode is lasting over 24 hrs
- Anticoagulation: Eliquis 2.5 BID
- [id number] at least 6 (age, gender, CVA, HTN)
- Fortunately remains asymptomatic
Headache, etiology uncertain, resolved, evaluated by neurology
History of CVA 04/2024, had been told by GI it was ok to resume, had LGI bleeding from hemorrhoids, no transfusions
- MRI brain 10/23/2024 showed findings of likely evolving chronic right basal ganglia infarction/intraparenchymal hematoma but no acute infarction
- Neurology evaluated, ok to continue Eliquis.
Subjective: No CP/dyspnea/palps/fatigue
Physical Exam
Vital Signs/Labs
Vital Signs
Temp Pulse Resp BP Pulse Ox
97.4 F 110 16 128/84 98
10/25/24 11:27 10/25/24 11:27 10/25/24 11:27 10/25/24 11:27 10/25/24 11:27
10/24/24 10/25/24 10/26/24
06:59 06:59 06:59
Actual Weight 53.07 kg
10/24/24 05:14
10/25/24 05:07
Magnesium 1.7 mg/dl (1.6-2.3) 10/25/24 05:07
Triglycerides 53 mg/dl (10-149) 10/22/24 06:14
LDL Cholesterol, Calc 34 mg/dl 10/22/24 06:14
VLDL Cholesterol, Calc 10 mg/dl (0-30) 10/22/24 06:14
HDL Cholesterol 27 mg/dl 10/22/24 06:14
TSH 3.63 uIU/ml (0.47-4.68) 10/23/24 08:27
Physical Exam
Constitutional: No acute distress
Cardiovascular: Pedal edema is absent and Rhythm/rate is irregular
Respiratory: Respiratory effort normal and Lungs clear to auscul.
GI: Soft and Distention absent
Neuro/Psych: AO x 3
Data Reviewed
-
Date of Service: October 25, 2024
[2024-10-25] MEDS: CARDIZEM CD 120 MG PO (14:56)
[2024-10-25] MEDS: LIPITOR 40 MG PO (17:05)
[2024-10-26 03:29] VITALS: BP 145/95
[2024-10-26 03:39] LABS: Magnesium 1.8 mg/dl (1.6-2.3)
--- NOTE | 2024-10-26 03:39 | W.PN.UPDATE ---
Update Note
Progress Note Update
0230 RN reports 31 beat VT HR to 140 then returned to HR 84 asymptomatic. Will check electrolytes.
[2024-10-26 03:42] LABS: Blood Urea Nitrogen 16 mg/dl (7-17); Calcium 7.8 mg/dl (8.4-10.2); Carbon Dioxide 26 mmol/L (22-30); Chloride 109 mmol/L (98-107); Estimated Creatinine Clearance 42 ml/min; Glucose 95 mg/dl (70-99); Potassium 3.8 mmol/L (3.5-5.1); Sodium 140 mmol/L (135-145); eGFR > 60.00
[2024-10-26] MEDS: MAGNESIUM SULFATE 100 IV (04:42)
[2024-10-26] MEDS: KCL 10 MEQ PO (04:43)
[2024-10-26 06:13] LABS: Blood Urea Nitrogen 15 mg/dl (7-17); Calcium 8.1 mg/dl (8.4-10.2); Carbon Dioxide 27 mmol/L (22-30); Chloride 109 mmol/L (98-107); Estimated Creatinine Clearance 42 ml/min; Glucose 86 mg/dl (70-99); Sodium 139 mmol/L (135-145); eGFR > 60.00
[2024-10-26 06:21] LABS: Potassium 3.7 mmol/L (3.5-5.1)
[2024-10-26 07:00] VITALS: BP 140/74
[2024-10-26] MEDS: CARDIZEM CD 120 MG PO (08:38)
[2024-10-26] MEDS: ROCALTROL 0.25 MCG PO (08:38)
[2024-10-26] MEDS: ELIQUIS 2.5 MG PO (08:38)
[2024-10-26] MEDS: TOPROL XL PO (08:39)
[2024-10-26] MEDS: KCL 20 MEQ PO (08:40)
[2024-10-26] MEDS: TOPROL XL 100 MG PO (08:40)
[2024-10-26 11:00] VITALS: BP 126/77
--- NOTE | 2024-10-26 11:04 | W.PN.HOSP.TC ---
Today's Communication/Plan
-
Home on p.o. metoprolol and Cardizem
Outpatient cardiology follow-up
Assessment / Plan
Assessment / Plan
Gen: NAD, Awake and alert
Eyes: EOMI, no scleral icterus.
Neck: supple.
CV: Remains tachy, irreg/irreg, +S1/S2, no m/r/g.
Resp: Remains CTAB, no rales, wheezes, or rhonchi.
Abd: +BS, soft, NT, ND
Skin: No rashes.
Neuro: Remains CN 2-12 intact, non-focal.
Psych: Normal mood and affect.
Assessment/plan
#Paroxysmal atrial fibrillation/flutter with RVR
#Atrial flutter on presentation
#NSVT overnight electrolytes repleted.
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 Additional Cardizem 120 mg added. Heart rate significantly improved. May need additional agent-?anti-arrhythmic.
-Cardiology following
-Continue anticoagulation with Eliquis
#Headache
#History of CVA 04/2024
-EKG on presentation atrial flutter with variable AV block with PVC
-Head CT There is a hypodensity within the right basal ganglia which is new from prior examination and may represent a late subacute/chronic infarction in the setting of prior right MCA occlusion. There is no evidence of acute intracranial
hemorrhage.
-MRI brain resulted noted.
-Neurology consulted and correspondence noted with chronic intracranial hemorrhage.
#Hypokalemia likely secondary to chronic diarrhea
-Episodes of diarrhea prior to admission,
-Replete prn
#Secondary hyperparathyroidism with hypocalcemia
#Severe vitamin D deficiency
-Vitamin D levels < 12, PTH 276,
-Started vitamin D ergocalciferol 50K IU weekly x 6 week
#Crohn's disease s/p bowel resection
-Denies active exacerbation
#Hypercholesterolemia
-Continue statin
CODE STATUS full code
DVT prophylaxis Eliquis
d/w with daughter at bedside in details
More than 30 minutes spent in discharge including
Final examination of the patient
Summarizing hospital stay
Instructions for continuing care to all relevant caregivers
Preparation of discharge records, prescriptions, and referral forms
Total time spent (in minutes): 52
Anticipated Discharge: Today
Subjective/Interval History
-
Date of Service: October 26, 2024
Heart rate well-controlled
Denies palpitation
Objective Data
-
Labs:
Laboratory Results
10/26/24 10/26/24
02:54 05:07
Sodium 140 139
Potassium 3.8 3.7
Chloride 109 H 109 H
Carbon Dioxide 26 27
BUN 16 15
Creatinine 0.8 0.8
Glucose 95 86
Calcium 7.8 L 8.1 L
Vital Signs:
Vital Signs
Temp Pulse Resp BP Pulse Ox
97.8 F 85 18 140/74 96
10/26/24 07:00 10/26/24 08:40 10/26/24 07:00 10/26/24 08:40 10/26/24 08:45
I&O
10/25/24 10/26/24 10/27/24
06:59 06:59 06:59
Intake Total 1660 / 1660 180 / 180
Balance 1660 / 1660 180 / 180
--- NOTE | 2024-10-26 11:11 | W.DCSUMMARY ---
Discharge Summary
Discharge Data
Date of Admission: 10/21/24
Date of Discharge: 10/26/24
-
Pending Results: No
Hospital Course
83 female past medical history of Crohn's disease s/p resection, hyperlipidemia, history of stroke, atrial fibrillation presented with complaints of headache. Patient underwent Head CT There is a hypodensity within the right basal ganglia which is
new from prior examination and may represent a late subacute/chronic infarction in the setting of prior right MCA occlusion. There is no evidence of acute intracranial hemorrhage. MRI of the brain was also performed findings likely involving
chronic right basal ganglia infarction/intraparenchymal hematoma. There is no evidence of acute infarction. Neurology evaluated patient and recommended continue with Eliquis. Patient also had severe electrolyte abnormality with hypocalcemia and
hypokalemia. Electrolytes repleted. Severe vitamin D deficiency was noted and was started on supplementation. Patient headache resolved. Patient was also found to be in paroxysmal atrial fibrillation/flutter with rapid ventricular response and
was required by cardiology. Patient metoprolol dose was slowly uptitrated. Patient required additional medication for rate control agent was started on Cardizem. Patient heart rate was well-controlled on Toprol 100 mg daily and Cardizem 120ng
daily. Patient was evaluated by physical therapy with plan to discharge home.
Portions of this chart may have been created with voice recognition software.� Occasional wrong word or �sound alike� substitutions may have occurred due to the inherent limitations of voice recognition software.
�
Discharge Plan
-
Patient Disposition: Home with Home Care
Discharge Diagnosis/Procedures: Paroxysmal atrial fibrillation/flutter with rapid ventricular response
Headache
Hypokalemia
Vitamin D deficiency
Hypocalcemia
Condition: Fair
Diet: Regular
Activity: As tolerated
Driving Restrictions: As prior to admission
Other Services: VN
Referrals:
Laura Mccracken CRNP [Specified Professional Personl, Cardiology] - 11/14/24 10:40 am
NONE,* [Family Provider, Internal Medicine] - in less than 1 week
Prescriptions:
New
diltiazem HCl [Cardizem CD] 120 mg capsule,extended release 24hr
120 mg PO DAILY Qty: 30 0RF
metoprolol succinate 100 mg Tablet Extended Release 24 Hr
100 mg PO DAILY Qty: 30 0RF
ergocalciferol (vitamin D2) [Vitamin D2] 1,250 mcg (50,000 unit) Capsule
50,000 unit PO Q7D Qty: 6 0RF
calcitriol 0.25 mcg Capsule
0.25 mcg PO DAILY Qty: 30 0RF
Continued
atorvastatin [Lipitor] 40 mg Tablet
40 mg PO QPM
acetaminophen [Tylenol] 325 mg Tablet
650 mg PO DAILYPRN PRN (Reason: mild pain)
Eliquis 5 mg tablet
2.5 mg PO BID
Discontinued
metoprolol succinate 25 mg Tablet Extended Release 24 Hr
25 mg PO DAILY Qty: 30 0RF
Discharge Orders:
Discharge Patient (As Directed); Ordered 10/26/24
Ordered By: Frank Medellin
Discharge Date and Time
Discharge Date/Time: 10/26/24 14:16
Print Language: MACEDONIAN
== END 2024-10-26 14:16 | disposition home health service (06) | DRG 644 ==
LOC: 3 WEST ACU 19:37
PROVIDERS: Emergency Medicine; Nurse Practitioner Family; Student in an Organized Health Care Education/Training Program; ADMITTING PHYSICIAN Hospitalist; ATTENDING PHYSICIAN Hospitalist; CONSULT PHYSICIAN Psychiatry & Neurology Clinical Neurophysiology; CONSULT PHYSICIAN Student in an Organized Health Care Education/Training Program; EMERGENCY PHYSICIAN Student in an Organized Health Care Education/Training Program
DX: E21.1 Secondary hyperparathyroidism, not elsewhere classified (principal); I48.92 Unspecified atrial flutter; K50.90 Crohn's disease, unspecified, without complications; I48.0 Paroxysmal atrial fibrillation; E87.6 Hypokalemia; Z79.01 Long term (current) use of anticoagulants; I10 Essential (primary) hypertension; E78.5 Hyperlipidemia, unspecified; Z86.73 Personal history of transient ischemic attack (TIA), and cerebral infarction without residual deficits; E78.00 Pure hypercholesterolemia, unspecified
CPT/HCPCS: 70450; 70551; 80048; 80053; 80061; 82306; 82436; 83735; 83970; 84100; 84133; 84443; 85025; 85027; 92523; 93005; 96360; 97116; 97162; 97166; 97530; 99285

== ENCOUNTER 2024-11-04 05:22 | Inpatient (IN) | payer MEDICARE, OTHER, SELFPAY ==
[2024-11-04] VITALS (16 sets, daily range): BP systolic 103–188; BP diastolic 61–127; BMI 22.3; BMI 22.0
[2024-11-04 03:05] LABS: Hematocrit 39.2 % (37.0-47.0); Hemoglobin 12.9 g/dL (12.0-16.0); Mean Corp Hgb Conc. 32.9 g/dL (33.0-37.0); Mean Corpuscular Volume 100.5 fL (81.0-99.0); Nucleated Red Blood Cells % 0 %; Platelet Count 259 10^3/uL (130-400); Red Cell Dist. Width 15.5 % (11.5-14.5)
[2024-11-04 03:14] LABS: COVID-19 Antigen Negative (Negative)
[2024-11-04 03:34] LABS: ALT (SGPT) 108 U/L (0-35); AST (SGOT) 65 U/L (14-36); Albumin 3.9 g/dl (3.5-5.0); Alkaline Phosphatase 171 U/L (38-126); Blood Urea Nitrogen 15 mg/dl (7-17); Calcium 8.2 mg/dl (8.4-10.2); Carbon Dioxide 26 mmol/L (22-30); Chloride 107 mmol/L (98-107); Estimated Creatinine Clearance 36 ml/min; Glucose 112 mg/dl (70-99); Magnesium 1.5 mg/dl (1.6-2.3); Potassium 4.5 mmol/L (3.5-5.1); Sodium 141 mmol/L (135-145); Total Protein 7.0 g/dl (6.3-8.2); eGFR > 60.00
--- NOTE | 2024-11-04 03:39 | ED.GENMED ---
History of Present Illness
General
Chief Complaint: Breathing Problem
Source: patient
Exam Limitations: none
Time Seen by Provider: 11/04/24 02:32
Nursing documentation reviewed up to this point in time: agreed with
History of Present Illness
History of Present Illness:
83-year-old female past medical history of A-fib hypertension recent admission to the hospital with hypokalemia and headache at the time presenting to the emergency department today with concerns of worsening shortness of breath and cough over the
past week. Was discharged from the hospital about 1 week ago. Today became more short of breath and had a pulse ox in the 80s. Denies using oxygen at baseline. Denies specific fevers no chest pain.
Past History
Past History
ED Past Medical History: Arrthythmia (Atrial fibrillation) and HTN
Review of Systems
Review of Systems
Allergies reviewed?: Yes
All Other Systems: ROS reviewed and negative except as documented in HPI and ROS
Phy Exam
Physical Exam
Physical Exam:
GENERAL: Alert , in no apparent distress
EYE: pupils equal and reactive
NECK: Supple, no significant adenopathy.
ENT: o/p clr, mmm.
CARDIAC: Regular rate and rhythm .
LUNGS: Rhonchi to lower lung field bilaterally
ABDOMEN: Soft, without focal tenderness, no r/g, no cvat
NEUROLOGICAL: Alert and oriented, no focal neuro deficits
SKIN: Warm and dry, skin intact.
MUSCULOSKELETAL: No edema, well perfused.
PSYCH: Normal and appropriate interaction.
Scores
Heart Failure Risk
Heart Failure Risk Score: Not Applicable
Course
Orders/Labs/Results
Orders:
Orders
11/04/24 02:43
EKG [Electrocardiogram (*1)] Urgent
Reason for Study: Shortness of Breath
EKG- Treatment ONCE
11/04/24 02:48
Urinalysis Reflex To Culture Urgent
11/04/24 02:49
CR Chest - 2 Views Urgent
Comment:
Reason For Exam: cough sob
11/04/24 02:53
COVID-19 Antigen Urgent
Source: Nasal Swab
Complete Blood Count/With Diff Urgent
Comprehensive Metabolic Panel Urgent
Magnesium Urgent
NT-proBNP Urgent
Troponin I Urgent
11/04/24 03:20
Piperacillin/Tazo 4.5 Gram [Zosyn] 4.5 gram in 100 ml IV NOW
11/04/24 03:36
EKG [Electrocardiogram (*1)] Urgent
Reason for Study: Bradycardia / Tachycardia
EKG- Treatment ONCE
11/04/24 03:42
0.9% Sodium Chloride 500 ml [Nss] 500 ml IV BOLUS
11/04/24 03:46
Nitroglycerin Ointment [Nitro-Bid] 1 inch TOPICAL NOW STA
11/04/24 05:02
Furosemide [Lasix] 40 mg IV NOW STA
11/04/24 05:03
Admit/Transfer Patient As Directed
Co-Sign Provider:
Level of Care: Inpatient admission
Assign to:: Telemetry
Physician / Group: Kevin
Diagnosis: Acute Hypoxemic Resp Failure, CHF, A-Fib
Reason for Telemetry: Acute Heart Failure
Date to Stop Telemetry: 11/07/24
Time to Stop Telemetry: 11:00
Reason for Hospitalization: Acute Hypoxemic Resp Failure, CHF, A-Fib
Expected length of stay greater than two midnights?: Yes
ELOS- Estimated Length of Stay in days: 3
I certify the patient meets the requirements for IP care: Yes
PRN Pain Medication Management As Directed
May give lesser potent ordered pain med per pt: Yes
preference::
Protocol:: Medication orders for pain may be administered in a
manner that supports deferring to patient preference
when the pt is:
- Requesting an ordered lesser potent pain medication.
Least to most potent pain medications are defined
as: acetaminophen < NSAID < tramadol < opioids
(morphine, oxycodone, hydromorphone).
- Requesting a lesser dose of the same medication IF
ORDERED.
- Requesting a less intrusive route of administration
if both routes are prescribed by the provider (PO <
IV).
11/04/24 05:04
Code Status As Directed
Resuscitation Status: Full Code
11/04/24 05:07
Procalcitonin Urgent
If negative, will antibiotics be d/c'd or not started: Yes
Does the patient have renal or hepatic impairment?: No
Any recent (w/in 48 hrs) physiologic stress (CPR, rhabdo): No
Magnesium Sulfate 2 Gram/50 ml [Magnesium Sulfate] 2 gram in 50 ml IV NOW
11/07/24 11:00
DC Protocol for Telemetry ONCE
Abnormal Lab Results
11/04/24
02:53
RBC 3.90 L 10^6/uL
(4.20-5.40)
MCV 100.5 H fL
(81.0-99.0)
MCH 33.1 H pg
(27.0-31.0)
MCHC 32.9 L g/dL
(33.0-37.0)
RDW 15.5 H %
(11.5-14.5)
Absolute Neuts (auto) 7.9 H 10^3/uL
(1.4-6.5)
Absolute Monos (auto) 0.9 H 10^3/uL
(0.1-0.6)
Lymphocytes % 15.6 L %
(20.5-51.1)
Glucose 112 H mg/dl
(70-99)
Calcium 8.2 L mg/dl
(8.4-10.2)
Magnesium 1.5 L mg/dl
(1.6-2.3)
Total Bilirubin 1.6 H mg/dl
(0.2-1.3)
AST 65 H U/L
(14-36)
ALT 108 H U/L
(0-35)
Alkaline Phosphatase 171 H U/L
(38-126)
Troponin I 0.050 H* ng/ml
11/04/24 02:53
11/04/24 02:53
Vital Signs
Initial and Last Documented VS:
Initial Vital Signs
Temp Pulse Resp BP Pulse Ox
98.2 F 58 28 179/78 90
11/04/24 02:09 11/04/24 02:09 11/04/24 02:09 11/04/24 02:09 11/04/24 02:09
Last Documented Vital Signs
Temp Pulse Resp BP Pulse Ox
98.2 F 123 32 127/78 90
11/04/24 02:09 11/04/24 04:30 11/04/24 04:30 11/04/24 04:30 11/04/24 04:15
MDM/Problems Addressed
MDM/Problems Addressed:
83-year-old female presenting to the emergency department today with concerns of shortness of breath and cough. X-ray performed here that appears to be consistent with pneumonia. Started on antibiotics. Additionally BNP elevated some patchiness
on x-ray concern for potential fluid overload as well started on Nitropaste. Otherwise stable throughout ER stay admitted for further treatment and monitoring.
*Pulse Oximetry
SaO2: 95
Nasal Cannula flow liters per minute: 5
Oxygen Mode of Delivery: Room air
Patient hypoxic: no (92% 3L NC)
*Critical Care Note
Total Time (30-74mins, 75-104mins- exclusive of procedures): Not Applicable
ED Attending Note
-
Portions of this chart may have been created with voice recognition software.� Occasional wrong word or��sound alike� substitutions may have occurred due to the inherent limitations of voice recognition software.
Discharge Plan
Departure
Patient Disposition: Admit
Date of Disposition: 11/04/24
Time of Disposition: 05:38
Admit to: Telemetry
Admit to doctor: Kevin
Presentation/result/management discussed w/ accepting MD/DO: Hospitalist
Patient with high blood pressure during this ER visit?: No
Condition: Fair
Covid-19: Not Applicable
Discharge Problem:
Atrial fibrillation with rapid ventricular response, Elevated troponin, Pneumonia
Interventions
Interventions:
*Risk Screen - Suicide Last Done: 11/04/24 02:09
*General Assessment Last Done: 11/04/24 02:40
*Neglect/Abuse Screening Last Done: 11/04/24 02:40
*ED- Fall Risk Assessment Last Done: 11/04/24 02:40
ED- Cardiac Assessment Last Done: 11/04/24 03:14
ED- Pulmonary Assessment Last Done: 11/04/24 03:14
[2024-11-04 03:42] LABS: Troponin I 0.050 ng/ml
[2024-11-04] MEDS: ZOSYN 100 IV (03:44)
[2024-11-04] MEDS: NSS 500 IV (03:44)
[2024-11-04] MEDS: NITRO-BID 1 INCH TOPICAL (03:51)
--- NOTE | 2024-11-04 05:08 | HPS.HSE ---
Family Physician
-
Family Physician: * NONE
Chief Complaint
-
SOB
History of Present Illness
Patient is an 83y F with PMH significant for A-Fib / Flutter, prior CVA / IAT and chronic loose stools s/p prior bowel resection who presents to ED complaining of SOB. Patient was recently admitted to from 10/21 - 10/26 for complaint of severe
headache. She was seen by Neurology and had imaging showing sequelae of prior CVA in April. No evidence of new insult, stroke, etc. She was noted to be in A-Flutter with variable block and intermittent rapid rates. Her CV med regimen was
adjusted including addition of Cardizem and increase in metoprolol. She was noted to have deficiencies in potassium, calcium and magnesium and these were repleted as well.
Patient states that she has felt somewhat SOB since her discharge. She complains of a dry, hacking cough or a 'tickle' in the throat.
Patient complains of SOB that is worse with lying flat or with exertion. This has increased such that she feels SOB even with speaking. She has occasional chest heaviness. No fevers / chills. No N/V.
No changes in her medication regimen since recent discharge.
Medical History
Past Medical History
Past Medical History: Reports Other
Additional Past Medical History:
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
Crohn's Disease
Hypertension
Paroxysmal atrial fibrillation / flutter
Secondary Hyperparathyroidism
Past Surgical History: Reports Other
Additional Past Surgical History:
Partial Small Bowel Resection
T&A
Right M1 IAT
Social History
Tobacco: Non-smoker
Alcohol: None
Drug: None
Personal:
Family History
Family History: Not pertinent
Allergies / Home Medications
Allergies reflects when Allergies were last updated in [facility].
Home Medications with original date entered in [facility]
Allergy/Medication List:
Allergies
Allergy/AdvReac Type Severity Reaction Status Date / Time
No Known Allergies Allergy Verified 11/04/24 02:09
Home Medications
acetaminophen 325 mg tablet (Tylenol) 650 mg PO DAILYPRN PRN mild pain 10/21/24
apixaban 5 mg tablet (Eliquis) 2.5 mg PO BID Blood Clot Prevention/Tx 10/21/24
atorvastatin 40 mg tablet (Lipitor) 40 mg PO QPM High Cholesterol 10/21/24
calcitriol 0.25 mcg capsule 0.25 mcg PO DAILY #30 caps 10/26/24
diltiazem HCl 120 mg capsule,extended release 24 hr (Cardizem CD) 120 mg PO DAILY #30 caps 10/26/24
ergocalciferol (vitamin D2) 1,250 mcg (50,000 unit) capsule (Vitamin D2) 50,000 unit PO Q7D #6 caps 10/26/24
metoprolol succinate 100 mg tablet,extended release 24 hr 100 mg PO DAILY #30 tabs 10/26/24
Review of Systems
-
History Source: Patient and Family
A 12 point ROS was completed and negative except as noted: Yes
Constitutional: Reports Fatigue; Denies Fever or Chills
EENT: Denies Sore Throat
Respiratory: Reports Cough and Trouble Breathing; Denies Hemoptysis
Cardiac: Reports Chest Pain; Denies Diaphoresis, Palpitations or Syncope
Abdomen/GI: Reports Diarrhea (Loose / soft stools 1-2 times per day. No change from baseline.); Denies Abdominal Pain, Nausea or Vomiting
: Denies Dysuria or Frequency
Musculoskeletal: Denies Joint Pain or Edema
Neurological: Denies Dizzy or Headache
Physical Exam
Vital Signs
Vital Signs
Temp Pulse Resp BP Pulse Ox
98.2 F 123 32 127/78 90
11/04/24 02:09 11/04/24 04:30 11/04/24 04:30 11/04/24 04:30 11/04/24 04:15
Physical Exam
General: Other (83y F in mild distress due to dyspnea.)
HEENT: Moist mucous membranes and Other (Pos JVD and HJR.)
Respiratory: Other (Diffuse rales > 1/2 up bilaterally. No rhonchi.)
Cardiac: S1/S2, Irregular Rhythm and Tachycardia; No Murmur
GI: Other (Abdomen is softly distended, no focal tenderness. No rebound / guarding.)
Musculoskeletal: No Clubbing, No Cyanosis and Other (Trace pedal edema.)
Neuro: AO x 3
Laboratory Results
-
11/04/24 02:53
11/04/24 02:53
Laboratory Results
Total Bilirubin 1.6 mg/dl (0.2-1.3) H 11/04/24 02:53
AST 65 U/L (14-36) H 11/04/24 02:53
ALT 108 U/L (0-35) H 11/04/24 02:53
Alkaline Phosphatase 171 U/L (38-126) H 11/04/24 02:53
Troponin I 0.050 ng/ml H* 11/04/24 02:53
Impression/Plan
-
A/P: Patient is an 83y F with PMH significant for ASCVD, hypertension and paroxysmal A-Fib / Flutter who presents to ED complaining of SOB, orthopnea and cough since her recent hospital discharge on 10/26/24.
Acute Hypoxemic Respiratory Failure
Acute HF - Unknown Type (likely HFpEF)
- Admit for further evaluation and treatment.
- SpO2 in the 80s on room air - satisfactory in the low 90s on 3 lpm of supplemental O2.
- Rales on exam, pulm edema / L effusion on CXR, JVD and elevated BNP and blood pressure seem most c/w pulm edema / CHF as etiology of hypoxemia.
- Afebrile, no leukocytosis or L shift.
- Check procalcitonin - hold on additional abx for now pending that result, new fever, etc.
- IV Lasix now and daily.
- Follow I/Os, daily weights, etc.
- Cardiology evaluation for additional recommendations.
- Update Echo (last done in 08/2023 with LVEF = 65-70%, diastolic dysfunction and marked biatrial enlargement).
- Follow for clinical improvement coincident with diuresis.
Atrial Flutter with Variable AV Block
- Heart rates 100 - 120 for the most part here in the ED.
- Continue current med regimen with holding parameters and follow on telemetry.
- Continue Eliquis for stroke risk reduction.
- Cardiology evaluation as noted above.
Abnormal LFTs
- Suspect this is due to passive hepatic congestion given JVD / HJR and increasing LFTs over past two visits.
- Follow for changes with diuresis as noted above.
- Check abdominal US for completeness.
ASCVD
- s/p M1 CVA in April and IAT at that time.
- Continue Eliquis as noted above. Continue statin.
- Trend troponin to rule out acute ischemia.
Secondary Hyperparathyroidism
Hypocalcemic
Hypovitaminosis D
Hypomagnesemia
- Electrolytes are mostly stable or slightly improved from recent admission.
- Mg is low again and will replace with IV rider.
- Continue calcitriol. On weekly Vit D as an outpatient.
- Add PO potassium during loop diuretic.
Crohn's Disease
Chronic Loose Stool
- Patient reports chronic 'diarrhea' s/p prior partial bowel resection.
- She describes 1-2 soft / loose stools per day. Not true diarrhea.
- Replace electrolytes as needed as noted above.
- No bloody / mucousy stools. No abdominal pain.
- Follow for any new changes in bowel habits.
DVT Prophylaxis: On Eliquis
Code Status: Full
[2024-11-04] MEDS: MAGNESIUM SULFATE 50 IV (06:01)
[2024-11-04] MEDS: LASIX 40 MG IV ×2 (06:01→16:13)
[2024-11-04 06:36] LABS: Urine Character Clear (Clear)
[2024-11-04 07:02] LABS: Procalcitonin 0.13 ng/ml (0.0-0.25); Troponin I 0.054 ng/ml
--- NOTE | 2024-11-04 09:27 | W.PN.HOSP.TC ---
Today's Communication/Plan
-
Acute CHF
Acute pulmonary edema
Acute hypoxic respiratory insufficiency secondary to above
Repeat echocardiogram now with mildly reduced EF at 50%
Continue IV Lasix
Monitor rate and rhythm on current regimen
Cardiology to see
Follow LFT trend
Follow US of the abdomen
Assessment / Plan
Assessment / Plan
A/P: Patient is an 83y F with PMH significant for ASCVD, hypertension and paroxysmal A-Fib / Flutter who presents to ED complaining of SOB, orthopnea and cough since her recent hospital discharge on 10/26/24.
Acute Hypoxemic Respiratory Failure
Acute HF - Unknown Type (likely HFpEF)
Repeat echocardiogram 11/04:
1. Low normal left ventricular ejection fraction is with an ejection fraction of 50%.
2. There is moderate left ventricular hypertrophy.
3. Severe bi-atrial enlargement.
4. Aortic sclerosis without stenosis. Mild aortic regurgitation seen.
5. Compared to 09/11/23: LVEF is now 50%, compared to 65-70% previosuly.
6. Consider outpatient evaluation for cardiac amyloidosis.
- SpO2 in the 80s on room air - satisfactory in the low 90s on 3 lpm of supplemental O2.
- Rales on exam, pulm edema / L effusion on CXR, JVD and elevated BNP and blood pressure seem most c/w pulm edema / CHF as etiology of hypoxemia.
- Afebrile, no leukocytosis or L shift.
-Procalcitonin within normal limits
-Continue IV diuresis
- Follow I/Os, daily weights, etc.
- Cardiology evaluation for additional recommendations.
- Follow for clinical improvement coincident with diuresis.
Atrial Flutter with Variable AV Block
- Heart rates 100 - 120 for the most part here in the ED.
- Continue current med regimen with holding parameters and follow on telemetry.
- Continue Eliquis for stroke risk reduction.
- Cardiology evaluation as noted above.
Abnormal LFTs
- Suspect this is due to passive hepatic congestion given JVD / HJR and increasing LFTs over past two visits.
- Follow for changes with diuresis as noted above.
- Check abdominal US for completeness.
ASCVD
- s/p M1 CVA in April and IAT at that time.
- Continue Eliquis as noted above. Continue statin.
- Trend troponin to rule out acute ischemia.
Secondary Hyperparathyroidism
Hypocalcemic
Hypovitaminosis D
Hypomagnesemia
- Electrolytes are mostly stable or slightly improved from recent admission.
- Mg is low again and will replace with IV rider.
- Continue calcitriol. On weekly Vit D as an outpatient.
- Add PO potassium during loop diuretic.
Crohn's Disease
Chronic Loose Stool
- Patient reports chronic 'diarrhea' s/p prior partial bowel resection.
- She describes 1-2 soft / loose stools per day. Not true diarrhea.
- Replace electrolytes as needed as noted above.
- No bloody / mucousy stools. No abdominal pain.
- Follow for any new changes in bowel habits.
DVT Prophylaxis: On Eliquis
Code Status: Full
Anticipated Discharge: 24 - 48 hours
Subjective/Interval History
-
Date of Service: November 04, 2024
Objective Data
-
Labs:
Laboratory Results
11/04/24
02:53
WBC 10.5
Hgb 12.9
Hct 39.2
Plt Count 259
Sodium 141
Potassium 4.5
Chloride 107
Carbon Dioxide 26
BUN 15
Creatinine 0.9
Glucose 112 H
Calcium 8.2 L
Total Bilirubin 1.6 H
AST 65 H
ALT 108 H
Alkaline Phosphatase 171 H
Vital Signs:
Vital Signs
Temp Pulse Resp BP Pulse Ox
98.2 F 102 32 117/80 90
11/04/24 02:09 11/04/24 06:01 11/04/24 04:30 11/04/24 06:01 11/04/24 04:15
I&O
11/03/24 11/04/24 11/05/24
06:59 06:59 06:59
Output Total 650 / 650
Balance -650 / -650
Physical Exam
-
General: Well Developed and No Apparent Distress
HEENT: Normocephalic, Atraumatic and Moist Mucous Membranes
Respiratory: Rales
Cardiac: Regular Rhythm and S1/S2; Negative Murmur, Rub or Gallop
GI: Soft, Nontender, Nondistended and Normal Bowel Sounds; Negative Organomegaly
Rectal: Deferred by Provider
Musculoskeletal: No Clubbing, No Cyanosis and No Edema
Skin: Negative Rash
Neuro: Nonfocal/Grossly Intact
[2024-11-04] MEDS: TOPROL XL 100 MG PO (09:37)
[2024-11-04] MEDS: KLOR-CON 20 MEQ PO ×2 (09:38→20:18)
[2024-11-04] MEDS: ELIQUIS 2.5 MG PO ×2 (09:38→20:18)
[2024-11-04 09:49] LABS: Glycohemoglobin (HgbA1c) 5.1 % (4.0-5.6)
[2024-11-04] MEDS: ROCALTROL 0.25 MCG PO (09:52)
--- NOTE | 2024-11-04 10:50 | CM ---
CM reviewed chart and met with pt bedside in ED. Pt lives with her daughter, 2 story home, 3 [address]RIS, has first floor BR/full BA.
Independent in ADLs, personal care and ambulation at baseline. Uses RW when she leaves the home, also has shower chair.
Current with [facility] since last admission in late September.
Currently on 5L NC, does not have home O2.
PCP: Brien Daigle
Pharmacy: [facility]
Anticipate discharge home with [facility], CM will continue to follow for any discharge planning needs.
[2024-11-04 12:22] LABS: Troponin I 0.052 ng/ml
--- NOTE | 2024-11-04 13:13 | CON.CAR ---
Consultation
Consultation Request
Date/Time Consultation Requested: 11/04/24, 7am
Date/Time Consultation Performed: 11/04/24, 930am
Requesting Provider: Kevin
Performing Provider: Corey
Reason for Consultation: A fib, acute heart failure
Medical History
-
Chief Complaint: SOB, chest pressure
History of Present Illness:
83-year-old female with Crohn's disease, paroxysmal atrial fibrillation on Eliquis, CVA in April 2024, and hypertension who presented to the emergency department with SOB and chest pressure. She was admitted to 10/21-10/26 for headache, and we were
consulted due to A fib with RVR. We increased metoprolol to 50mg bid and added diltiazem 120mg. She now returns with symptoms of heart failure.
Casting Machine Set Up Operator: Dr. Sullivan
Past Medical History
Past Medical History: Arrhythmias (persistent atrial fibrillation) and CVA
Past Surgical History: Bowel Resection (partial small bowel)
Social History
Tobacco: Non-Smoker
Family History
Family History: Early CAD (none)
Allergies / Home Medications
Allergy/AdvReac Type Severity Reaction Status Date / Time
No Known Allergies Allergy Verified 11/04/24 02:09
�Medication �Instructions �Recorded �Confirmed �Type
acetaminophen 325 mg tablet 650 mg PO DAILYPRN PRN mild pain 10/21/24 11/04/24 History
(Tylenol)
apixaban 5 mg tablet (Eliquis) 2.5 mg PO BID Blood Clot 10/21/24 11/04/24 History
Prevention/Tx
atorvastatin 40 mg tablet (Lipitor) 40 mg PO QPM High Cholesterol 10/21/24 11/04/24 History
calcitriol 0.25 mcg capsule 0.25 mcg PO DAILY #30 caps 10/26/24 11/04/24 Rx
ergocalciferol (vitamin D2) 1,250 50,000 unit PO Q7D #6 caps 10/26/24 11/04/24 Rx
mcg (50,000 unit) capsule (Vitamin
D2)
metoprolol succinate 100 mg 100 mg PO DAILY #30 tabs 10/26/24 11/04/24 Rx
tablet,extended release 24 hr
diltiazem HCl 120 mg 120 mg PO QPM Arrhythmia 11/04/24 11/04/24 History
tablet,extended release 24 hr
Review of Systems
-
All other systems: Negative unless noted
Constitutional: Weight Gain
Respiratory: Cough and Trouble Breathing
Cardiac: Chest Pain
Neurological: Weakness
Physical Exam
Vital Signs
Temp Pulse Resp BP Pulse Ox
98.2 F 112 29 108/73 92
11/04/24 02:09 11/04/24 07:30 11/04/24 07:30 11/04/24 07:30 11/04/24 07:30
Lab Results
11/04/24 02:53
11/04/24 02:53
Troponin I 0.052 ng/ml H* 11/04/24 11:44
Pgc-Z-Hrnsydycuyb Pept 5490 pg/ml 11/04/24 02:53
Physical Exam
General: No Apparent Distress
HEENT: Normocephalic and Anicteric
Respiratory: Clear and Non Labored Respirations
Cardiac: Irregular Rhythm, Murmur (none), Peripheral Edema (1+ LE edema) and JVD (present)
Skin: Warm and Dry
Neuro: AO x 3
Psych: Calm
Impression / Plan
-
83-year-old female with paroxysmal atrial fibrillation on Eliquis, CVA in April 2024, and hypertension who presented to the emergency department with SOB and chest pressure. She was admitted to 10/21-10/26 for headache, and we were consulted due to
A fib with RVR. We increased metoprolol to 50mg bid and added diltiazem 120mg. She now returns with symptoms of heart failure.
Atrial fibrillation
-previously paroxysmal, but now this episode seems persistent
-rate control is limited by med side effects
-she feels worse on diltiazem: will stop
-cont Toprol XL 100mg daily: may need to increase
-we discussed rhythm control/DCCV: she is hesitant to go under anesthesia; can revisit if unable to control rates due to med side effects
- Anticoagulation: Eliquis 2.5 BID (age, weight)
- [id number] at least 6 (age, gender, CVA, HTN)
Acute HFPEF, new
-not on lasix as outpatient
-severe, requiring hospitalization with IV diuresis and close monitoring of labs/tele
-in setting of A fib with RVR
-EF 50%, no sig valve disease--overall echo could be consistent with amyloid
-consider outpatient nuclear scan
-cont lasix 40mg IV bid
Acute non-ischemic myocardial injury in setting of A fib and HF
-trop 0.05
Data Reviewed
-
EKG: Other (tele: A fib, HR 110s on avg)
Medical Tests (Nuc Med, Echo etc): Image Personally Visualized and interpreted (echo: EF 50%)
Labs: Labs Reviewed by me
[2024-11-04] MEDS: LIPITOR 40 MG PO (17:45)
[2024-11-04 19:14] LABS: Troponin I 0.046 ng/ml
[2024-11-05] VITALS (8 sets, daily range): BP systolic 78–140; BP diastolic 52–95; PULSE 81–89; O2SAT 95; BMI 20.2
[2024-11-05 08:32] LABS: Hematocrit 38.7 % (37.0-47.0); Hemoglobin 12.9 g/dL (12.0-16.0); Mean Corp Hgb Conc. 33.3 g/dL (33.0-37.0); Mean Corpuscular Volume 98.2 fL (81.0-99.0); Platelet Count 253 10^3/uL (130-400); Red Cell Dist. Width 15.1 % (11.5-14.5)
--- NOTE | 2024-11-05 08:33 | W.PN.HOSP.TC ---
Today's Communication/Plan
-
increase Cardizem, still uncontrolled heart rate
Might not need US if liver enzymes go down tomorrow
Await urine culture
Assessment / Plan
Assessment / Plan
A/P: Patient is an 83y F with PMH significant for ASCVD, hypertension and paroxysmal A-Fib / Flutter who presents to ED complaining of SOB, orthopnea and cough since her recent hospital discharge on 10/26/24.
Acute Hypoxemic Respiratory Failure requiring 4-5 liters of O2
Acute HFpEF
Repeat echocardiogram 11/04:
1. Low normal left ventricular ejection fraction is with an ejection fraction of 50%.
2. There is moderate left ventricular hypertrophy.
3. Severe bi-atrial enlargement.
4. Aortic sclerosis without stenosis. Mild aortic regurgitation seen.
5. Compared to 09/11/23: LVEF is now 50%, compared to 65-70% previously.
6. Consider outpatient evaluation for cardiac amyloidosis.
- SpO2 in the 80s on room air - satisfactory in the low 90s on 3 lpm of supplemental O2.
- Rales on exam, pulm edema / L effusion on CXR, JVD and elevated BNP and blood pressure seem most c/w pulm edema / CHF as etiology of hypoxemia.
- Afebrile, no leukocytosis or L shift.
-Procalcitonin within normal limits
-Continue IV diuresis
- Follow I/Os, daily weights, etc.
Non ischemic troponin elevation due to HF
Echo, no wall motion abnormalities
Troponin trending down
# Await urine culture
Atrial Flutter with Variable AV Block
- Heart rates 100 - 120
Uncontrolled
Will increased CCB
c/w BB
- follow on telemetry.
- Continue Eliquis for stroke risk reduction.
Abnormal LFTs
- Suspect this is due to passive hepatic congestion given JVD / HJR and increasing LFTs over past two visits.
- Follow for changes with diuresis as noted above.
- Check abdominal US for completeness. Pt ate, will try in am, if enzymes are down, then no need for US
ASCVD
- s/p M1 CVA in April and IAT at that time.
- Continue Eliquis as noted above. Continue statin.
- Trend troponin to rule out acute ischemia.
Secondary Hyperparathyroidism
Hypocalcemic
Hypovitaminosis D
Hypomagnesemia
- Electrolytes are mostly stable or slightly improved from recent admission.
- Mg is low again and will replace with IV rider.
- Continue calcitriol. On weekly Vit D as an outpatient.
- Add PO potassium during loop diuretic.
Hypomagnesemia
Crohn's Disease
Chronic Loose Stool
- Patient reports chronic 'diarrhea' s/p prior partial bowel resection.
- She describes 1-2 soft / loose stools per day. Not true diarrhea.
- Replace electrolytes as needed as noted above.
- No bloody / mucous stools. No abdominal pain.
- Follow for any new changes in bowel habits.
DVT Prophylaxis: On Eliquis
Code Status: Full
Total time spent to see the patient, examine the patient, review data lab result, discuss treatment plan with patient, nursing staff around 55 minutes
Anticipated Discharge: > 48 hours
Subjective/Interval History
-
Date of Service: November 05, 2024
Objective Data
-
Labs:
Laboratory Results
11/05/24
07:39
WBC 8.7
Hgb 12.9
Hct 38.7
Plt Count 253
Sodium Pending
Potassium Pending
Chloride Pending
Carbon Dioxide Pending
BUN Pending
Creatinine Pending
Glucose Pending
Calcium Pending
Vital Signs:
Vital Signs
Temp Pulse Resp BP Pulse Ox
97.5 F 128 18 139/94 94
11/05/24 03:56 11/05/24 03:56 11/05/24 03:56 11/05/24 03:56 11/05/24 03:56
I&O
11/04/24 11/05/24 11/06/24
06:59 06:59 06:59
Intake Total 240 / 240
Output Total 650 / 650 1300 / 1300
Balance -650 / -650 -1060 / -1060
[2024-11-05 09:01] LABS: Blood Urea Nitrogen 16 mg/dl (7-17); Calcium 8.2 mg/dl (8.4-10.2); Carbon Dioxide 31 mmol/L (22-30); Chloride 103 mmol/L (98-107); Estimated Creatinine Clearance 33 ml/min; Glucose 84 mg/dl (70-99); HDL Cholesterol 35 mg/dl; LDL Cholesterol, Calculated 43 mg/dl; Magnesium 1.8 mg/dl (1.6-2.3); Potassium 3.6 mmol/L (3.5-5.1); Sodium 140 mmol/L (135-145); Very Low Density Lipoprotein 15 mg/dl (0-30); eGFR 55.21
[2024-11-05] MEDS: KLOR-CON 20 MEQ PO ×2 (09:40→20:39)
[2024-11-05] MEDS: ROCALTROL 0.25 MCG PO (09:41)
[2024-11-05] MEDS: ELIQUIS 2.5 MG PO ×2 (09:41→20:38)
[2024-11-05] MEDS: FLUSH (NSS) 1 FLUSH IV (09:42)
[2024-11-05] MEDS: LASIX 40 MG IV (09:42)
[2024-11-05] MEDS: TOPROL XL 100 MG PO ×2 (09:42→20:38)
[2024-11-05] MEDS: CARDIZEM CD 180 MG PO (09:48)
--- NOTE | 2024-11-05 10:39 | W.PN.CD ---
Today's Communication / Plan
-
stop dilt
increase metoprolol to `100mg po bid
continue diuresis
Impression / Plan
-
83-year-old female with paroxysmal atrial fibrillation on Eliquis, CVA in April 2024, and hypertension who presented to the emergency department with SOB and chest pressure. She was admitted to 10/21-10/26 for headache, and we were consulted due to
A fib with RVR. We increased metoprolol to 50mg bid and added diltiazem 120mg. She now returns with symptoms of heart failure.
Atrial fibrillation
-previously paroxysmal, but now this episode seems persistent
-rate control is limited by med side effects
-she feels worse on diltiazem: will stop and optimize BB (donna in light of echo saying eval for amyloid)
-cont Toprol XL 100mg daily: increase to BID
-we discussed rhythm control/DCCV: discussed again, she is hesitant to go under anesthesia; can revisit if unable to control rates due to med side effects
- Anticoagulation: Eliquis 2.5 BID (age, weight)
- [id number] at least 6 (age, gender, CVA, HTN)
Acute HFPEF, new
-not on lasix as outpatient
-severe, requiring hospitalization with IV diuresis and close monitoring of labs/tele
-in setting of A fib with RVR
-EF 50%, no sig valve disease--overall echo could be consistent with amyloid
-consider outpatient nuclear scan
-cont lasix 40mg IV bid with intensive monitoring
Acute non-ischemic myocardial injury in setting of A fib and HF
-trop 0.05
Physical Exam
Vital Signs/Labs
Vital Signs
Temp Pulse Resp BP Pulse Ox
97.3 F 94 16 140/95 99
11/05/24 07:25 11/05/24 09:48 11/05/24 07:25 11/05/24 09:48 11/05/24 09:30
11/04/24 11/05/24 11/06/24
06:59 06:59 06:59
Actual Weight 121 lb 11.123 oz 110 lb 9 oz
11/05/24 07:39
11/05/24 07:39
Magnesium 1.8 mg/dl (1.6-2.3) 11/05/24 07:39
Triglycerides 75 mg/dl (10-149) 11/05/24 07:39
LDL Cholesterol, Calc 43 mg/dl 11/05/24 07:39
VLDL Cholesterol, Calc 15 mg/dl (0-30) 11/05/24 07:39
HDL Cholesterol 35 mg/dl 11/05/24 07:39
11/04/24
02:53
Rjt-C-Pxdnrjnfvbn Pept 5490
LAB Results
11/04/24 11/04/24 11/04/24
02:53 06:15 11:44
Troponin I 0.050 H* 0.054 H* 0.052 H*
11/04/24
18:12
Troponin I 0.046 H*
Physical Exam
Constitutional: No acute distress
Cardiovascular: Pedal edema is absent, JVD pressure is normal, Systolic murmur absent, Diastolic murmur absent and Rhythm/rate is irregular
Respiratory: Respiratory effort normal, Lungs clear to auscul. and Other (decreased b/l bases)
Neuro/Psych: AO x 3
Data Reviewed
-
Date of Service: November 05, 2024
Medical Decision Making: Review of Case with other Provider (Dr Palacio stop dilt and increase bb continue diuresis)
[2024-11-05 12:35] LABS: ALT (SGPT) 68 U/L (0-35); AST (SGOT) 30 U/L (14-36); Albumin 3.1 g/dl (3.5-5.0); Alkaline Phosphatase 127 U/L (38-126); Total Protein 5.9 g/dl (6.3-8.2)
[2024-11-05] MEDS: TYLENOL 650 MG PO (13:45)
--- NOTE | 2024-11-05 16:42 | PTCARENOTE ---
Pt AAO x3, speech soft. SCHULTZ; OOB to chair with assist x1, jesus well. Pt c/o dizziness/'head feels full' when OOB with PT; BP decreased to 78/52. pt placed back in bed, BP increased to 90/53. Dr. Castrejon notified; IV Lasix dc'd. pt without c/o
when resting in bed. Telemetry:A fib. Maintained on nc 2 lpm- pulse ox 98%; pt with (+) slight OLIVO. Abd soft, jesus PO well. Incont large amts clear yellow urine; Purewick in place. Resting quietly at present. Will continue to monitor.
[2024-11-05] MEDS: LIPITOR 40 MG PO (17:12)
[2024-11-06 03:19] VITALS: BP 138/80
[2024-11-06 07:06] VITALS: BP 116/76
--- NOTE | 2024-11-06 08:38 | W.PN.HOSP.TC ---
Addendum entered and electronically signed by Marco Antonio Palacio MD 11/06/24 15:55:
Addendum
Pt complained of left ankle pain, no swelling on exam, able to move the joint. Pain is localized to lat side of the joint. I did x ray, soft tissue swelling, seems sprained ankle. Plan for Support and weightbearing as tolerated. I updated the
daughter
d/w development rep, ok to go home with PRN Lasix. Scripts are sent. Pt agreed to go home, daughter at bed side, agreed.
Total discharge time spent to see the patient, examine the patient, review data lab result, discuss discharge plan with patient, daughter, development rep, nursing staff around 67 minutes
Original Note:
Today's Communication/Plan
-
.
Assessment / Plan
Assessment / Plan
A/P: Patient is an 83y F with PMH significant for ASCVD, hypertension and paroxysmal A-Fib / Flutter who presents to ED complaining of SOB, orthopnea and cough since her recent hospital discharge on 10/26/24.
Acute Hypoxemic Respiratory Failure requiring 4-5 liters of O2---Resolved, on RA now.
Acute HFpEF
Repeat echocardiogram 11/04:
1. Low normal left ventricular ejection fraction is with an ejection fraction of 50%.
2. There is moderate left ventricular hypertrophy.
3. Severe bi-atrial enlargement.
4. Aortic sclerosis without stenosis. Mild aortic regurgitation seen.
5. Compared to 09/11/23: LVEF is now 50%, compared to 65-70% previously.
6. Consider outpatient evaluation for cardiac amyloidosis.
- Afebrile, no leukocytosis or L shift.
-Procalcitonin within normal limits
-s/p IV diuresis, she developed orthostatic hypotension, diuretic therapy was held.
- Order daily weight.
Negative urine culture
Non ischemic troponin elevation due to HF
Echo, no wall motion abnormalities
Troponin trending down
Atrial Flutter with Variable AV Block
better controlled. Stopped Cardizem, increased BB.
- follow on telemetry.
- Continue Eliquis for stroke risk reduction.
Abnormal LFTs
- Suspect this is due to passive hepatic congestion given JVD / HJR and increasing LFTs over past two visits.
- abdominal US for completeness. No pain or nausea.
ASCVD
- s/p M1 CVA in April and IAT at that time.
- Continue Eliquis as noted above. Continue statin.
Secondary Hyperparathyroidism
Hypocalcemic
Hypovitaminosis D
Hypomagnesemia
- Electrolytes are mostly stable or slightly improved from recent admission.
- Mg is low again and will replace with IV rider.
- Continue calcitriol. On weekly Vit D as an outpatient.
- Add PO potassium during loop diuretic.
Hypomagnesemia
Crohn's Disease
Chronic Loose Stool
- Patient reports chronic 'diarrhea' s/p prior partial bowel resection.
- She describes 1-2 soft / loose stools per day. Not true diarrhea.
- Replace electrolytes as needed as noted above.
- No bloody / mucous stools. No abdominal pain.
- Follow for any new changes in bowel habits.
DVT Prophylaxis: On Eliquis
Code Status: Full
Total time spent to see the patient, examine the patient, review data lab result, discuss treatment plan with patient, daughter, development rep, nursing staff around 55 minutes
Anticipated Discharge: > 48 hours
Subjective/Interval History
-
Date of Service: November 06, 2024
No chest pain
No sob
No abdominal pain
Objective Data
-
Labs:
Laboratory Results
11/06/24
05:46
Sodium Pending
Potassium Pending
Chloride Pending
Carbon Dioxide Pending
BUN Pending
Creatinine Pending
Glucose Pending
Calcium Pending
Total Bilirubin Pending
AST Pending
ALT Pending
Alkaline Phosphatase Pending
Vital Signs:
Vital Signs
Temp Pulse Resp BP Pulse Ox
97.9 F 95 18 138/80 95
11/06/24 03:19 11/06/24 03:19 11/06/24 03:19 11/06/24 03:19 11/06/24 03:19
I&O
11/05/24 11/06/24 11/07/24
06:59 06:59 06:59
Intake Total 240 / 240 570 / 570
Output Total 1300 / 1300
Balance -1060 / -1060 570 / 570
[2024-11-06 08:51] LABS: ALT (SGPT) 63 U/L (0-35); AST (SGOT) 34 U/L (14-36); Albumin 3.2 g/dl (3.5-5.0); Alkaline Phosphatase 134 U/L (38-126); Blood Urea Nitrogen 20 mg/dl (7-17); Calcium 8.2 mg/dl (8.4-10.2); Carbon Dioxide 32 mmol/L (22-30); Chloride 102 mmol/L (98-107); Estimated Creatinine Clearance 33 ml/min; Glucose 82 mg/dl (70-99); Potassium 3.9 mmol/L (3.5-5.1); Sodium 140 mmol/L (135-145); Total Protein 6.0 g/dl (6.3-8.2); eGFR 55.21
[2024-11-06] MEDS: KLOR-CON 20 MEQ PO (08:55)
[2024-11-06] MEDS: ELIQUIS 2.5 MG PO (08:55)
[2024-11-06] MEDS: ROCALTROL 0.25 MCG PO (08:55)
[2024-11-06] MEDS: TOPROL XL 100 MG PO (08:55)
[2024-11-06 11:44] VITALS: BP 157/88
[2024-11-06 12:10] VITALS: BMI 20.1
--- NOTE | 2024-11-06 12:45 | W.PN.CD ---
Today's Communication / Plan
-
Continue metoprolol to 100 mg p.o. twice daily
Furosemide 40mg po prn wt gain of 3lbs in 3 days or 5lbs in 5 days
will assist in arranging follow up with Dr Sullivan or our office ENVIRONMENTAL TECHNICIAN
I will sign off
Impression / Plan
-
83-year-old female with paroxysmal atrial fibrillation on Eliquis, CVA in April 2024, and hypertension who presented to the emergency department with SOB and chest pressure. She was admitted to 10/21-10/26 for headache, and we were consulted due to
A fib with RVR. We increased metoprolol to 50mg bid and added diltiazem 120mg. She now returns with symptoms of heart failure.
Atrial fibrillation
-previously paroxysmal, but now this episode seems persistent
-rate control is limited by med side effects, currently good rate control
-she feels worse on diltiazem: will stop and optimize BB (donna in light of echo saying eval for amyloid)
-cont Toprol XL 100mg BID
-we discussed rhythm control/DCCV: discussed again, she is hesitant to go under anesthesia; can revisit if unable to control rates due to med side effects
- Anticoagulation: Eliquis 2.5 BID (age, weight)
- [id number] at least 6 (age, gender, CVA, HTN)
Acute HFPEF, new
-not on lasix as outpatient, she was Orthostatic yesterday afternoon physical therapy, did not receive IV dose.
Now euvolemic at 109 pounds
-in setting of A fib with RVR
-EF 50%, no sig valve disease--overall echo could be consistent with amyloid
-consider outpatient nuclear scan
-She is leery about medication use. Will proceed with an as needed Lasix dosing strategy based on daily weights. She lives with her daughter who is at the bedside and all agree.
-Start [id number] mg p.o. as needed for weight gain of 3 pounds in a day or 5 pounds in 5 days.
- Patient should discuss further GDMT with Dr. Sullivan as an outpatient.
Acute non-ischemic myocardial injury in setting of A fib and HF
-trop 0.05
Physical Exam
Vital Signs/Labs
Vital Signs
Temp Pulse Resp BP Pulse Ox
97.6 F 68 18 157/88 98
11/06/24 11:44 11/06/24 11:44 11/06/24 11:44 11/06/24 11:44 11/06/24 11:44
11/05/24 11/06/24 11/07/24
06:59 06:59 06:59
Actual Weight 110 lb 9 oz 109 lb 12.8 oz
11/05/24 07:39
11/06/24 05:46
Magnesium 1.8 mg/dl (1.6-2.3) 11/05/24 07:39
Triglycerides 75 mg/dl (10-149) 11/05/24 07:39
LDL Cholesterol, Calc 43 mg/dl 11/05/24 07:39
VLDL Cholesterol, Calc 15 mg/dl (0-30) 11/05/24 07:39
HDL Cholesterol 35 mg/dl 11/05/24 07:39
11/04/24
02:53
Dwv-K-Fbmvdtlzjvj Pept 5490
LAB Results
11/04/24 11/04/24 11/04/24
02:53 06:15 11:44
Troponin I 0.050 H* 0.054 H* 0.052 H*
11/04/24
18:12
Troponin I 0.046 H*
Physical Exam
Constitutional: No acute distress
Cardiovascular: Pedal edema is absent, JVD pressure is normal, Systolic murmur absent, Diastolic murmur absent and Rhythm/rate is irregular
Respiratory: Respiratory effort normal, Lungs clear to auscul., Wheeze Absent, Crackles Absent and Rhonchi Absent
Neuro/Psych: AO x 3
Data Reviewed
-
Date of Service: November 06, 2024
Medical Decision Making: Review of Case with other Provider (dtr at the bedside, Dr del cid as need furosemide)
--- NOTE | 2024-11-06 13:57 | CM ---
Met with patient and daughter at bedside; discharge plan reviewed; agrees to resumption of home health w/ [facility]; referral sent via [facility]
Daughter will transport home
Plan: Discharge to home w/ resumption of [facility] home health services
--- NOTE | 2024-11-06 15:15 | PTCARENOTE ---
Pt c/o L ankle pain. 08/[address] Palacio at bedside. Applied nazia bandage and ordered Xray L ankle. Xray completed, no fracture. MD cornelius to dc. Educated patient on use of nazia wrap, rest, ice, and elevation. Educated on dc packet. Pt and
daughter state understanding. No further questions. Dc home via daughter with resumption of [facility].
[2024-11-06 15:31] VITALS: BP 123/76
--- NOTE | 2024-11-06 16:27 | W.DCSUMMARY ---
Discharge Summary
Discharge Data
Date of Admission: 11/04/24
Date of Discharge: 11/06/24
-
Pending Results: No
Hospital Course
83 years old female admitted with exertional shortness of breath. Patient was diagnosed with acute mildly reduced ejection fraction. Echocardiogram showed left ventricular ejection fraction of 50%. Patient was evaluated by fuel technician, she was
started on intravenous diuretic. Patient felt better and was able to maintain good saturation on room air. Patient was noted to have orthostatic hypotension. Recommendation to use Lasix on as needed basis at home. Patient was given instruction
regarding weight control and monitoring. Patient did not have chest pain. She complained of left ankle discomfort upon weightbearing. Patient had physical therapy. Taft could be related to gait problem. X-ray did not show fracture but showed
mild soft tissue swelling. Patient was able to move her ankle joint with no swelling or erythema noted. No fever or leukocytosis. She was given compression support and weightbearing as tolerated. She remained hemodynamically stable.
Physical Therapy Teacher recommended to stop Cardizem and to increase dose of Toprol-XL from 100 mg daily to 100 mg twice a day. Patient was discharged home in a stable condition with home health services. Discharge directions were discussed with daughter.
Discharge Plan
-
Patient Disposition: Home with Home Care
Discharge Diagnosis/Procedures: -Atrial fibrillation
He was seen by fuel technician. Stop Cardizem. Increase Toprol XL to 100 mg twice a day. Physical Therapy Teacher recommended Lasix 40 mg for weight gain of 3 pounds in 3 days or 5 pounds in 5 days.
- You have elevated liver enzyme with no pain. Please follow-up with your rail car mechanic for further recommendation.
- You complained of left ankle pain, x-ray was done. Continue weightbearing as tolerated.
Diet: As tolerated and Low Sodium
Referrals:
Oswaldo Lutz MD [Active, Gastroenterology] - in two to four weeks
NONE,* [Family Provider, Internal Medicine]
Homero Sullivan MD [Active, Cardiology]
Prescriptions:
New
metoprolol succinate 100 mg Tablet Extended Release 24 Hr
100 mg PO BID Qty: 60 0RF
Rx Instructions:
Physical Therapy Teacher recommended the dose, patient tolerated it well in the hospital
furosemide [Lasix] 40 mg tablet
40 mg PO DAILYPRN PRN (Reason: Weight gain) Qty: 10 0RF
Rx Instructions:
Use as directed
Continued
atorvastatin [Lipitor] 40 mg Tablet
40 mg PO QPM
acetaminophen [Tylenol] 325 mg Tablet
650 mg PO DAILYPRN PRN (Reason: mild pain)
Eliquis 5 mg tablet
2.5 mg PO BID
ergocalciferol (vitamin D2) [Vitamin D2] 1,250 mcg (50,000 unit) Capsule
50,000 unit PO Q7D Qty: 6 0RF
calcitriol 0.25 mcg Capsule
0.25 mcg PO DAILY Qty: 30 0RF
Discontinued
metoprolol succinate 100 mg Tablet Extended Release 24 Hr
100 mg PO DAILY Qty: 30 0RF
diltiazem HCl 120 mg Tablet Extended Release 24 Hr
120 mg PO QPM
Discharge Orders:
Discharge Patient (As Directed); Ordered 11/06/24
Ordered By: Maroc Antonio Palacio
Discharge Date and Time
Discharge Date/Time: 11/06/24 16:07
Print Language: AUSTR[place]IAN
== END 2024-11-06 16:07 | disposition home health service (06) | DRG 291 ==
LOC: 4 EAST ACU 05:22
PROVIDERS: Physician Assistant; ADMITTING PHYSICIAN Hospitalist; ATTENDING PHYSICIAN Internal Medicine; CONSULT PHYSICIAN Internal Medicine; EMERGENCY PHYSICIAN Student in an Organized Health Care Education/Training Program
DX: I11.0 Hypertensive heart disease with heart failure (principal); I50.31 Acute diastolic (congestive) heart failure; J96.01 Acute respiratory failure with hypoxia; J81.0 Acute pulmonary edema; I48.19 Other persistent atrial fibrillation; K50.90 Crohn's disease, unspecified, without complications; N25.81 Secondary hyperparathyroidism of renal origin; I48.92 Unspecified atrial flutter; I25.10 Atherosclerotic heart disease of native coronary artery without angina pectoris; I44.30 Unspecified atrioventricular block; E83.51 Hypocalcemia; I95.1 Orthostatic hypotension; I5A Non-ischemic myocardial injury (non-traumatic); I70.0 Atherosclerosis of aorta; K76.1 Chronic passive congestion of liver; E83.42 Hypomagnesemia; Z79.01 Long term (current) use of anticoagulants; Z86.73 Personal history of transient ischemic attack (TIA), and cerebral infarction without residual deficits; Z90.49 Acquired absence of other specified parts of digestive tract; Z11.52 Encounter for screening for COVID-19
CPT/HCPCS: 71046; 73600; 76700; 80048; 80053; 80061; 80076; 81003; 81015; 83036; 83735; 83880; 84145; 84443; 84484; 85025; 85027; 87086; 87811; 93005; 93306; 97163; 97166; 99285